=== PATIENT | male | born 1940 | race Caucasian/White ===

== ENCOUNTER 2017-08-18 11:26 | Inpatient (IN) ==
--- NOTE | 2017-08-18 13:17 | Emergency Department Note ---
Disposition Clinical Impression: CHF exacerbation Qualifiers: Heart failure type: unspecified Qualified Code(s): I50.9 - Heart failure, unspecified Congestive heart failure Qualifiers: Heart failure type: unspecified Heart failure chronicity: acute on chronic Qualified Code(s): I50.9 - Heart failure, unspecified Disposition: Admitted As Inpatient Condition: Good Time of Disposition: 15:27 SOB HPI - General Chief Complaint: ED Shortness of Breath/Dyspnea Stated Complaint: "sob,Leg/Feet swelling" came from surg Time Seen by Provider: 08/18/17 12:13 Source: patient Limitations: no limitations Nursing Notes Reviewed: Yes Vital Signs Reviewed: Yes - History of Present Illness 76-year-old male history of heart failure with pacemaker presents with shortness of breath in leg swelling. The symptoms have been worsening over the past 2 weeks. Patient went to his pain management physician today for shot in his knee but was sent here for further evaluation event to the complaint of dyspnea. Patient states he is normally able to walk roughly 100 feet without much difficulty by however the past few weeks he has refrained from any walking or activity due to the difficulty in breathing. It is worse with laying down. He denies any chest pain. He denies any recent illness, fever, cough or congestion. He takes a water pill twice a day which she has been doing. He states his diet is quite poor as he lives at home by himself and makes whatever he can. He admits to high salt intake. He otherwise denies any other complaints. Pt Subjective Complaint: shortness of breath - Related Data Home Medications Medication Instructions Recorded Confirmed Allopurinol [Zyloprim 300 MG] 300 mg PO DAILY 08/18/17 08/18/17 Atorvastatin [Lipitor] 40 mg PO HS 08/18/17 08/18/17 Dabigatran Etexilate Mesylate 150 mg PO BID 08/18/17 08/18/17 [Pradaxa] Finasteride [Proscar] 5 mg PO DAILY 08/18/17 08/18/17 Furosemide [Lasix] 40 mg PO BID 08/18/17 08/18/17 Gabapentin [Neurontin] 600 mg PO BID 08/18/17 08/18/17 HYDROcodone/Acet 5/325 mg [Morrill 2 tab PO TID 08/18/17 08/18/17 5-325 mg] Insulin ASPART [Novolog] 10 unit SQ TID 08/18/17 08/18/17 Insulin Glargine,Hum.rec.anlog 48 unit SQ QAM 08/18/17 08/18/17 [Lantus Solostar] Isosorbide MONOnitrate (24 HR) 60 mg PO DAILY 08/18/17 08/18/17 [Imdur] Lisinopril [Zestril] 40 mg PO DAILY 08/18/17 08/18/17 Methylphenidate HCl [Concerta] 18 mg PO DAILY 08/18/17 08/18/17 Morphine Sulfate [Arymo ER] 15 mg PO BID 08/18/17 08/18/17 Omeprazole [PriLOSEC] 40 mg PO BID 08/18/17 08/18/17 Potassium Chloride [Klor-Con 10] 10 meq PO DAILY 08/18/17 08/18/17 Promethazine [Phenergan] 25 mg PO DAILY 08/18/17 08/18/17 Spironolactone [Aldactone] 25 mg PO DAILY 08/18/17 08/18/17 metFORMIN [Glucophage] 500 mg PO BIDWM 08/18/17 08/18/17 Allergies Allergy/AdvReac Type Severity Reaction Status Date / Time red dye AdvReac Flushing Verified 08/18/17 15:39 CT/MRI Dye Allergy Anaphylaxis Uncoded 08/18/17 15:39 All systems ED: reviewed and negative except as stated. Review of Systems: As Per HPI Constitutional: Denies: fever, chills Cardiovascular: Denies: chest pain Respiratory: Reports: dyspnea. Denies: cough Gastrointestinal: Denies: abdominal pain, nausea, vomiting Genitourinary: Denies: urgency, dysuria Musculoskeletal: Denies: back pain, neck pain Integumentary: Denies: rash, abrasion Neurological: Denies: headache, weakness Psychiatric: Denies: anxiety, depression Endocrine: Reports: fatigue Past Medical History - Past Medical History Attestation: Yes The following information was validated with the patient. Source: patient Medical history: Reports: CHF, hyperlipidemia, hypertension Psychiatric history: Reports: no psych history - Social History Smoking Status: Never smoker Smokeless Tobacco Status: Yes Alcohol use: Reports: none Drug use: Reports: none Physical Exam - General Limitations: no limitations General appearance: alert, in no apparent distress, obese - Head Head exam: atraumatic, normocephalic, normal inspection - Eye Eye exam: Present: normal appearance, PERRL, EOMI - ENT ENT exam: normal exam, normal oropharynx, mucous membranes moist - Neck Neck exam: Present: normal inspection - Chest Chest inspection: Present: normal inspection, symmetric chest wall rise - Respiratory Respiratory exam: Present: normal lung sounds bilaterally. Absent: wheezes - Expanded Respiratory Exam Location: decreased breath sounds: Lower - Cardiovascular Cardiovascular exam: Present: regular rate, normal rhythm, normal heart sounds - Abdominal Exam Abdominal exam: Present: soft (obese), Non-Tender. Absent: tenderness, distention, guarding, rebound, rigidity - Extremities Exam Extremities exam: Present: normal inspection, full ROM, pedal edema (+3 pitting bilateral). Absent: tenderness - Neurological Exam Neurological exam: Present: alert, oriented X3 - Psychiatric Psychiatric exam: Present: normal affect, normal mood - Skin Skin exam: Present: warm, dry, intact, normal color Course Course Narrative: 76-year-old male presents with shortness of breath and leg swelling for the past 2 weeks. History of heart failure follows with Dr. Amanda Staples. Recent echocardiogram performed April 2017 with EF 50%. Patient is on diuretic. Over the past several days he has been more sure breath especially with exertion. He denies any chest pain. On examination he has pitting edema. Lungs are clear with diminished breath sounds. He admits to a poorly controlled diet of salt intake. He lives alone by himself and family is concerned. Labs and images performed. Chest x-ray shows cardiomegaly with mild congestion. BNP is slightly elevated 182. Labs or otherwise unremarkable. Patients afebrile without leukocytosis. Troponin less than 0.03. EKG is paced rhythm without STEMI findings. Patient will be admitted for further management and likely continue diuresis. Patient and family are in agreement with this plan. Impression is CHF exacerbation. - Consultations Consultation #1: Spoke with on-call hospitalist little Snell to admit for CHF exacerbation. No further orders at this time Vital Signs Temperature 97.8 F 08/18/17 11:50 Pulse Rate 89 08/18/17 11:50 Respiratory Rate 18 08/18/17 11:50 Blood Pressure 133/78 08/18/17 11:50 O2 Sat by Pulse Oximetry 93 08/18/17 11:50 Temperature 98.7 F 08/18/17 18:38 Pulse Rate 86 08/18/17 18:38 Respiratory Rate 17 08/18/17 18:38 Blood Pressure 117/66 08/18/17 18:38 O2 Sat by Pulse Oximetry 94 08/18/17 18:38 Oxygen Delivery Oxygen Delivery Room Air Shortness of Breath/Dyspnea - MDM Narrative Medical decision making narrative: Patient was discussed with my attending physician who agrees with ED management and final disposition. They independently evaluated the patient. Please refer to their attestation to this encounter for additional information. This note was generated by [employer] voice recognition software and as a result grammatical or spelling errors may occur using this program. - Medical Records Medical records reviewed: Yes I reviewed the patient's medical records. - Lab Data Lab results reviewed: Yes I reviewed the patient's lab results. Result diagrams: 08/18/17 13:16 08/18/17 13:16 Lab Results 08/18/17 08/18/17 08/18/17 Range/Units 13:16 13:16 13:16 WBC 6.6 (4.3-11.1) K/mcL RBC 4.19 (4.19-5.50) M/mcL Hgb 13.0 (12.9-16.9) g/dL Hct 39.2 (37.5-50.1) % MCV 93.6 (83.0-100.0) fL MCH 31.0 (28.0-33.3) pg MCHC 33.2 (31.6-35.5) g/dL RDW 15.6 H (11.5-14.5) % Plt Count 175 (140-400) K/mcL MPV 10.6 (9.4-12.4) fL Immature Gran % 0.8 (0-4) % Seg Neutrophils % 61.4 % Lymphocytes % 28.2 % Monocytes % 7.0 % Eosinophils % 2.1 % Basophils % 0.5 % Neutrophils # 4.0 (1.6-8.9) K/mcL Lymphocytes # 1.9 (0.6-4.6) K/mcL Monocytes # 0.5 (0.0-1.3) K/mcL Eosinophils # 0.1 (0.0-0.6) K/mcL Basophils # 0.0 (0.0-0.2) K/mcL Sodium 136 (136-145) mEq/L Potassium 4.2 (3.5-5.1) mEq/L Chloride 101 (98-107) mEq/L Carbon Dioxide 27 (23-29) mEq/L BUN 21 (8-23) mg/dL Creatinine 1.29 (0.70-1.30) mg/dL Est GFR ( Amer) > 60 (> 60) Est GFR (Non-Af Amer) 54 L (> 60) BUN/Creatinine Ratio 16 (6-26) Glucose 87 (70-105) mg/dL Calculated Osmolality 284 (280-300) Lactic Acid 1.5 (0.5-2.2) mmol/L Calcium 9.0 (8.6-10.3) mg/dL Troponin I < 0.03 (< 0.04) ng/mL B-Natriuretic Peptide (Less than 100) pg/mL 08/18/17 Range/Units 13:16 WBC (4.3-11.1) K/mcL RBC (4.19-5.50) M/mcL Hgb (12.9-16.9) g/dL Hct (37.5-50.1) % MCV (83.0-100.0) fL MCH (28.0-33.3) pg MCHC (31.6-35.5) g/dL RDW (11.5-14.5) % Plt Count (140-400) K/mcL MPV (9.4-12.4) fL Immature Gran % (0-4) % Seg Neutrophils % % Lymphocytes % % Monocytes % % Eosinophils % % Basophils % % Neutrophils # (1.6-8.9) K/mcL Lymphocytes # (0.6-4.6) K/mcL Monocytes # (0.0-1.3) K/mcL Eosinophils # (0.0-0.6) K/mcL Basophils # (0.0-0.2) K/mcL Sodium (136-145) mEq/L Potassium (3.5-5.1) mEq/L Chloride (98-107) mEq/L Carbon Dioxide (23-29) mEq/L BUN (8-23) mg/dL Creatinine (0.70-1.30) mg/dL Est GFR ( Amer) (> 60) Est GFR (Non-Af Amer) (> 60) BUN/Creatinine Ratio (6-26) Glucose (70-105) mg/dL Calculated Osmolality (280-300) Lactic Acid (0.5-2.2) mmol/L Calcium (8.6-10.3) mg/dL Troponin I (< 0.04) ng/mL B-Natriuretic Peptide 182 H (Less than 100) pg/mL - Radiology Data Radiology results reviewed: Yes I reviewed the patient's radiology results. Chest X-Ray 08/18/17 11:59 IMPRESSION: Borderline cardiomegaly and pulmonary vascular congestion. D/ / Miles Pearson MD / Miles Pearson MD Interpreting Provider: Miles Pearson MD - EKG Data EKG attestation: Yes I reviewed and interpreted this EKG. EKG results narrative: EKG performed 1146 electronic ventricular paced rhythm 73 bpm, QRS 139, no ST elevation or depression, no Sgarbossa criteria. Compared to prior EKG 2014 shows similar consistent findings. No acute ischemic changes.
[2017-08-18 13:30] LABS: Basophils % 0.5 %; Eosinophils # 0.1 K/mcL (0.0-0.6); Eosinophils % 2.1 %; Hematocrit 39.2 % (37.5-50.1); Immature Granulocytes % 0.8 % (0-4); Lymphocytes # 1.9 K/mcL (0.6-4.6); Lymphocytes % 28.2 %; Mean Corpuscular HGB Conc 33.2 g/dL (31.6-35.5); Mean Corpuscular Volume 93.6 fL (83.0-100.0); Mean Platelet Volume 10.6 fL (9.4-12.4); Monocytes # 0.5 K/mcL (0.0-1.3); Platelet Count 175 K/mcL (140-400); Red Blood Count 4.19 M/mcL (4.19-5.50); Red Cell Distribution Width 15.6 % (11.5-14.5); Segmented Neutrophils % 61.4 %
[2017-08-18 13:48] LABS: Troponin I < 0.03 ng/mL (< 0.04)
[2017-08-18 14:14] LABS: BUN/Creatinine Ratio 16 (6-26); Blood Urea Nitrogen 21 mg/dL (8-23); Carbon Dioxide 27 mEq/L (23-29); Chloride 101 mEq/L (98-107); Glucose 87 mg/dL (70-105); Osmolality,Calculated 284 (280-300); Potassium 4.2 mEq/L (3.5-5.1); Sodium 136 mEq/L (136-145); eGFR For African Americans > 60 (> 60); eGFR For Non-African Americans 54 (> 60)
[2017-08-18] MEDS ORDERED: Furosemide 40 MG/4 ML VIAL IVP ONE (15:10)
--- NOTE | 2017-08-18 15:23 | Emergency Department Note ---
Disposition Clinical Impression: Congestive heart failure Qualifiers: Heart failure type: unspecified Heart failure chronicity: acute Qualified Code( s): I50.9 - Heart failure, unspecified Disposition: Admitted As Inpatient Condition: Good Time of Disposition: 14:45 SOB HPI - General Chief Complaint: ED Shortness of Breath/Dyspnea Stated Complaint: "sob,Leg/Feet swelling" came from surg Time Seen by Provider: 08/18/17 12:13 Source: patient Mode of arrival: ambulatory Limitations: no limitations Nursing Notes Reviewed: Yes Vital Signs Reviewed: Yes - History of Present Illness 76-year-old male presents emergency Department with concerns of increasing shortness of breath and bilateral lower extremity edema. - Related Data Allergies Allergy/AdvReac Type Severity Reaction Status Date / Time red dye AdvReac Flushing Verified 01/23/15 12:56 CT/MRI Dye Allergy Anaphylaxis Uncoded 07/12/17 09:43 Constitutional: Denies: fever, chills Cardiovascular: Denies: chest pain Respiratory: Reports: dyspnea. Denies: cough Gastrointestinal: Denies: abdominal pain, nausea, vomiting Genitourinary: Denies: urgency, dysuria Musculoskeletal: Denies: back pain, neck pain Integumentary: Denies: rash, abrasion Neurological: Denies: headache, weakness Psychiatric: Denies: anxiety, depression Endocrine: Reports: fatigue Past Medical History - Past Medical History Medical history: Reports: CHF, hyperlipidemia, hypertension Psychiatric history: Reports: no psych history - Social History Smoking Status: Never smoker Smokeless Tobacco Status: Yes Alcohol use: Reports: none Drug use: Reports: none Physical Exam - General Limitations: no limitations General appearance: alert, in no apparent distress, obese Course Vital Signs Temperature 97.8 F 08/18/17 11:50 Pulse Rate 89 08/18/17 11:50 Respiratory Rate 18 08/18/17 11:50 Blood Pressure 133/78 08/18/17 11:50 O2 Sat by Pulse Oximetry 93 08/18/17 11:50 Temperature 97.8 F 08/18/17 11:50 Pulse Rate 89 08/18/17 11:50 Respiratory Rate 18 08/18/17 11:50 Blood Pressure 133/78 08/18/17 11:50 O2 Sat by Pulse Oximetry 93 08/18/17 11:50 Oxygen Delivery Oxygen Delivery Room Air Shortness of Breath/Dyspnea - Lab Data Result diagrams: 08/18/17 13:16 08/18/17 13:16 Lab Results 08/18/17 08/18/17 08/18/17 Range/Units 13:16 13:16 13:16 WBC 6.6 (4.3-11.1) K/mcL RBC 4.19 (4.19-5.50) M/mcL Hgb 13.0 (12.9-16.9) g/dL Hct 39.2 (37.5-50.1) % MCV 93.6 (83.0-100.0) fL MCH 31.0 (28.0-33.3) pg MCHC 33.2 (31.6-35.5) g/dL RDW 15.6 H (11.5-14.5) % Plt Count 175 (140-400) K/mcL MPV 10.6 (9.4-12.4) fL Immature Gran % 0.8 (0-4) % Seg Neutrophils % 61.4 % Lymphocytes % 28.2 % Monocytes % 7.0 % Eosinophils % 2.1 % Basophils % 0.5 % Neutrophils # 4.0 (1.6-8.9) K/mcL Lymphocytes # 1.9 (0.6-4.6) K/mcL Monocytes # 0.5 (0.0-1.3) K/mcL Eosinophils # 0.1 (0.0-0.6) K/mcL Basophils # 0.0 (0.0-0.2) K/mcL Sodium 136 (136-145) mEq/L Potassium 4.2 (3.5-5.1) mEq/L Chloride 101 (98-107) mEq/L Carbon Dioxide 27 (23-29) mEq/L BUN 21 (8-23) mg/dL Creatinine 1.29 (0.70-1.30) mg/dL Est GFR ( Amer) > 60 (> 60) Est GFR (Non-Af Amer) 54 L (> 60) BUN/Creatinine Ratio 16 (6-26) Glucose 87 (70-105) mg/dL Calculated Osmolality 284 (280-300) Lactic Acid 1.5 (0.5-2.2) mmol/L Calcium 9.0 (8.6-10.3) mg/dL Troponin I < 0.03 (< 0.04) ng/mL B-Natriuretic Peptide (Less than 100) pg/mL 08/18/17 Range/Units 13:16 WBC (4.3-11.1) K/mcL RBC (4.19-5.50) M/mcL Hgb (12.9-16.9) g/dL Hct (37.5-50.1) % MCV (83.0-100.0) fL MCH (28.0-33.3) pg MCHC (31.6-35.5) g/dL RDW (11.5-14.5) % Plt Count (140-400) K/mcL MPV (9.4-12.4) fL Immature Gran % (0-4) % Seg Neutrophils % % Lymphocytes % % Monocytes % % Eosinophils % % Basophils % % Neutrophils # (1.6-8.9) K/mcL Lymphocytes # (0.6-4.6) K/mcL Monocytes # (0.0-1.3) K/mcL Eosinophils # (0.0-0.6) K/mcL Basophils # (0.0-0.2) K/mcL Sodium (136-145) mEq/L Potassium (3.5-5.1) mEq/L Chloride (98-107) mEq/L Carbon Dioxide (23-29) mEq/L BUN (8-23) mg/dL Creatinine (0.70-1.30) mg/dL Est GFR ( Amer) (> 60) Est GFR (Non-Af Amer) (> 60) BUN/Creatinine Ratio (6-26) Glucose (70-105) mg/dL Calculated Osmolality (280-300) Lactic Acid (0.5-2.2) mmol/L Calcium (8.6-10.3) mg/dL Troponin I (< 0.04) ng/mL B-Natriuretic Peptide 182 H (Less than 100) pg/mL Attestation Statement - Attestation Attestation: I, Trenton Boyce, examined this patient and my medical decision-making was reviewed with the LEASE OUT WORKER/PA/Advanced Practice Nurse/Resident Physician. I agree with the documented findings, disposition and treatment plan as described except to the extent set forth below. 76-year-old male presents emergency Department with concerns of increasing shortness of breath and bilateral lower extremity swelling over the past 2-3 weeks. Patient states he has been eating increased amounts of sausage and ham at home. He takes Lasix every morning and denies missing any of his medications. Denies any recent chest pain or palpitations or syncopal events. Patient does state that he is increasingly more short of breath over the past 2 weeks with increased orthopnea and dyspnea on exertion. Patient states he is unable to walk around the house without becoming short of breath. He does state that he becomes lightheaded with exertion. Family is concerned because he lives at home alone. Chest x-ray shows mild cardiomegaly and mild to moderate pulmonary edema. BNP is mildly elevated at 189. Creatinine within normal limits. Initial troponin negative. EKG shows the paced rhythm with a rate of 73 without evidence of STEMI. Patient comfortable with the plan for admission to hospital for further care and evaluation with continued diuresis.
[2017-08-18] MEDS ORDERED: Acetaminophen 325 MG TABLET PO PRN (18:24)
[2017-08-18] MEDS ORDERED: Naloxone 0.4 MG/ML INJ IVP PRN (18:24)
[2017-08-18] MEDS ORDERED: *HR* Dextrose 50 % in Water (Syg) 50 ML SYRINGE IVP PRN (18:36)
[2017-08-18] MEDS ORDERED: Dextrose Gel 15 GM/37.5 ML TUBE PO PRN ×2 (18:36)
[2017-08-18] MEDS ORDERED: D5% in Water 1,000 ML IVC PRN (18:36)
[2017-08-18] MEDS: Insulin LISPRO 300 UNITS/3 ML VIAL SQ SCH ×2 (20:32→20:41)
[2017-08-18] MEDS: Gabapentin 300 MG CAPSULE PO SCH (20:40)
[2017-08-18] MEDS: *HR* Morphine Sulfate SR (12 HR) 15 MG TABLET.ER PO SCH (20:40)
[2017-08-18] MEDS: *HR* Dabigatran 150 MG CAPSULE PO SCH (20:40)
--- NOTE | 2017-08-18 21:11 | Internal Med History&Physical ---
Date of Encounter: 08/18/17 Time of Encounter: 18:07 Internal Medicine - H&P: HPI Chief complaint: "Told to come in by pain management doctor because both legs swollen" Admitted From: Emergency Dept Plans for Post Hospital Care: Home History of present illness: Mr. Macedo is a 76 year old male who presented to ED from pain management clinic due to increased BLE edema and worsening dyspnea. Patient was at routine pain management appointment when he was told to come to ED. He has had worsening BLE edema and intermittent dyspnea over the last 3 weeks. He has history of CHF that was previously well-controlled. No exacerbations like this per patient since diagnosis. Dyspnea was worse with exertion. He is having hard time sleeping at night due to dyspnea. He denies chest pain, palpitations , nausea, vomiting, fever, or chills. During my interview, he states that breathing seems to be back to baseline now. He still has significant BLE edema. He is putting out good urine since getting lasix 40 mg IV once in ED. Nursing staff reported skin wounds and erythma/warmth of LLE. He states that he thinks he may have been scratched by one of his four dogs. He has decreased sensation in BLE due to parasthesias from DM. His only other complaint is a GIL he has had all day. Past Med Surg Social Fam HX - Past Medical History Attestation: Yes The following information was validated with the patient. Source: patient Medical history: CHF, diabetes, GERD, hyperlipidemia, hypertension, other (Gout) Psychiatric history: no psych history - Past Surgical History Surgical History: cataract, cholecystectomy, pacemaker - Social History Smoking Status: Never smoker Smokeless Tobacco Status: Yes Alcohol use: none Drug use: none - Family History Mother Living Status: Age at : 72 Cause of : "pancreas" Father Living Status: Age at : 83 Cause of : [place] Internal Medicine - H&P: Meds Allopurinol [Zyloprim 300 MG] 300 mg PO DAILY 08/18/17 [History] Atorvastatin [Lipitor] 40 mg PO HS 08/18/17 [History] Dabigatran Etexilate Mesylate [Pradaxa] 150 mg PO BID 08/18/17 [History] Finasteride [Proscar] 5 mg PO DAILY 08/18/17 [History] Furosemide [Lasix] 40 mg PO BID 08/18/17 [History] Gabapentin [Neurontin] 600 mg PO BID 08/18/17 [History] HYDROcodone/Acet 5/325 mg [[place] 5-325 mg] 2 tab PO TID 08/18/17 [History] Insulin ASPART [Novolog] 10 unit SQ TID 08/18/17 [History] Insulin Glargine,Hum.rec.anlog [Lantus Solostar] 48 unit SQ QAM 08/18/17 [ History] Isosorbide MONOnitrate (24 HR) [Imdur] 60 mg PO DAILY 08/18/17 [History] Lisinopril [Zestril] 40 mg PO DAILY 08/18/17 [History] Methylphenidate HCl [Concerta] 18 mg PO DAILY 08/18/17 [History] Morphine Sulfate [Arymo ER] 15 mg PO BID 08/18/17 [History] Omeprazole [PriLOSEC] 40 mg PO BID 08/18/17 [History] Potassium Chloride [Klor-Con 10] 10 meq PO DAILY 08/18/17 [History] Promethazine [Phenergan] 25 mg PO DAILY 08/18/17 [History] Spironolactone [Aldactone] 25 mg PO DAILY 08/18/17 [History] metFORMIN [Glucophage] 500 mg PO BIDWM 08/18/17 [History] 3 Allergy/AdvReac Type Severity Reaction Status Date / Time red dye AdvReac Flushing Verified 08/18/17 15:39 CT/MRI Dye Allergy Anaphylaxis Uncoded 08/18/17 15:39 All Systems PM: A 10-system review of systems was performed and is negative for pertinent findings except as documented above in the HPI. - Constitutional Constitutional: no anorexia, no chills, no fever(s), no lethargy, no malaise, no weakness, no weight gain, no weight loss - EENT Eyes: no blurry vision, no diplopia, no loss of vision, no pain, no photophobia Ears: no decreased hearing, no ear pain Nose, mouth and throat: no dry mouth, no dysphagia, no mouth pain, no nasal congestion, no neck pain, no sinus pain, no sore throat - Cardiovascular Cardiovascular ROS IM: dyspnea, dyspnea on exertion, edema, no chest pain, no diaphoresis, no lightheadedness, no palpitations, no syncope - Respiratory Respiratory: dyspnea, dyspnea on exertion, no cough, no hemoptysis, no wheezing , no chest congestion - Gastrointestinal Gastrointestinal: no abdominal pain, no change in bowel habits, no constipation , no diarrhea, no dysphagia, no heartburn, no hematemesis, no hematochezia, no melena, no nausea, no vomiting - Genitourinary Genitourinary ROS male: no dysuria, no hematuria, no urinary frequency - Musculoskeletal Musculoskeletal ROS IM: no arthralgias, no back pain, no joint swelling, no limited range of motion, no myalgias, no neck pain - Integumentary Integumentary IM: erythema, new lesions, no rash, no sores, no jaundice - Neurological Neurological ROS: headache(s), paresthesias, no confusion, no dizziness, no focal weakness, no vertigo, no weakness - Psychiatric Psychiatric: no anxiety, no depression - Endocrine Endocrine IM: no cold intolerance, no fatigue, no heat intolerance, no polydipsia, no polyphagia, no polyuria - Constitutional Vitals: Temp Pulse Resp BP Pulse Ox 98.7 F 86 17 117/66 94 08/18/17 18:38 08/18/17 18:38 08/18/17 18:38 08/18/17 18:38 08/18/17 18:38 General appearance: Present: cooperative, A&O X 3, pleasant, no acute distress, obese, answers questions appropriately - Head Head exam: Present: atraumatic, normocephalic - Eye Eye exam: Present: EOMI, PERRL. Absent: nystagmus, scleral icterus - ENT ENT exam: Present: mucous membranes moist, normal external ear exam, normal oropharynx - Neck Neck exam general surgery: Present: supple, trachea midline. Absent: lymphadenopathy, tenderness, thyromegaly - Respiratory Respiratory exam: Present: CTAB. Absent: accessory muscle use, rales, rhonchi, wheezes Additional comments: Normal WOB - Cardiovascular Cardiovascular exam: Present: RRR, +S1, +S2. Absent: diastolic murmur, gallop, rubs, systolic murmur Additional comments: 3+ pitting BLE edema - GI/Abdominal GI/Abdominal exam: Present: normal bowel sounds, soft. Absent: distended, hepatomegaly, mass, splenomegaly, tenderness - Neurological Exam Neurological exam: Present: alert, CN II-XII intact, oriented X3, no focal deficits, strengths equal and symetr throughout. Absent: facial droop, speech deficit - Psychiatric Psychiatric exam: Present: normal affect, normal mood. Absent: agitated, anxious, depressed - Skin Skin exam: Present: dry, warm. Absent: cyanosis, rash Additional comments: Medial left lower leg with increased erythema and two small < 1 cm diameter scabbed lesions. Increased warmth of LLE. No induration. No pus or drainage. Internal Med - H&P Results - Labs CBC & Chem 7: 08/18/17 13:16 08/18/17 13:16 - Assessment and plan (1) CHF exacerbation Current Visit: Yes Status: Acute Assessment and plan: Mild exacerbation clinically. Respiratory status at baseline now; O2 sat 90- 100 on RA. Still with significant BLE edema. Admit for observation with telemetry. Will continue to diurese with IV lasix 40 mg BID (takes lasix 80 mg QD at home). Obtain repeat ECHO (he states last ECHO was > 1 year ago). Continue home lisinopril and aldactone. Monitor daily weights and strict I&O. Cardiac diet. Qualifiers: Heart failure type: unspecified Qualified Code(s): I50.9 - Heart failure, unspecified (2) Cellulitis of left lower extremity without foot Current Visit: Yes Status: Acute Assessment and plan: Two smalled scabbed skin wounds on left medial lower leg with surrounding warmth and erythema, no induration. Concern for cellulitis. Give one dose IV vancomycin now, then start PO clindamycin 600 mg Q8H tomorrow AM. Start tylenol PRN fever. (3) Headache Current Visit: Yes Status: Acute Assessment and plan: Start tylenol and norco PRN. Consider CT head if no improvement with pain medication. Qualifiers: Headache type: unspecified Headache chronicity pattern: acute headache Intractability: not intractable Qualified Code(s): R51 - Headache (4) Type II diabetes mellitus Current Visit: Yes Status: Chronic Assessment and plan: Start accuchecks and low dose SSI QID AC/HS. Continue home levemir. Qualifiers: Diabetes mellitus mcc insulin use: with longwall foreman use Diabetes mellitus complication status: with neurologic complications Diabetes mellitus complication detail: with polyneuropathy Qualified Code(s): E11.42 - Type 2 diabetes mellitus with diabetic polyneuropathy; Z79.4 - buttermaker (current) use of insulin; Z79.4 - buttermaker (current) use of insulin; Z79.4 - prison ( current) use of insulin; Z79.4 - buttermaker (current) use of insulin (5) HLD (hyperlipidemia) Current Visit: Yes Status: Chronic Assessment and plan: Continue home medications. Qualifiers: Hyperlipidemia type: mixed hyperlipidemia Qualified Code(s): E78.2 - Mixed hyperlipidemia (6) HTN (hypertension) Current Visit: Yes Status: Chronic Assessment and plan: Continue home medications. Qualifiers: Hypertension type: essential hypertension Qualified Code(s): I10 - Essential (primary) hypertension (7) GERD (gastroesophageal reflux disease) Current Visit: Yes Status: Acute Assessment and plan: Continue home medications. Qualifiers: Esophagitis presence: without esophagitis Qualified Code(s): K21.9 - Gastro -esophageal reflux disease without esophagitis (8) Gout Current Visit: Yes Status: Acute Assessment and plan: Continue home medications. Qualifiers: Gout site: unspecified site Gout etiology: unspecified cause Chronicity: chronic Presence of tophus: without tophus Qualified Code(s): M1A.9XX0 - Chronic gout, unspecified, without tophus (tophi) (9) DVT prophylaxis Current Visit: Yes Status: Acute Assessment and plan: Continue home pradaxa. - Time Spent With Patient Total time spent is greater than 50% in coordination of care (as documented) at patient's floor/unit and/or counseling patient: 25 - 35 minutes
[2017-08-19 04:58] LABS: Basophils % 0.4 %; Eosinophils # 0.2 K/mcL (0.0-0.6); Hematocrit 37.7 % (37.5-50.1); Hemoglobin 12.4 g/dL (12.9-16.9); Immature Granulocytes % 0.5 % (0-4); Lymphocytes % 26.9 %; Mean Corpuscular HGB Conc 32.9 g/dL (31.6-35.5); Mean Corpuscular Hemoglobin 30.5 pg (28.0-33.3); Mean Corpuscular Volume 92.6 fL (83.0-100.0); Mean Platelet Volume 11.1 fL (9.4-12.4); Monocytes # 0.7 K/mcL (0.0-1.3); Monocytes % 8.7 %; Neutrophils # 4.7 K/mcL (1.6-8.9); Platelet Count 174 K/mcL (140-400); Red Blood Count 4.07 M/mcL (4.19-5.50); Red Cell Distribution Width 15.5 % (11.5-14.5); Segmented Neutrophils % 61.5 %
[2017-08-19 05:17] LABS: BUN/Creatinine Ratio 15 (6-26); Blood Urea Nitrogen 20 mg/dL (8-23); Calcium 9.2 mg/dL (8.6-10.3); Carbon Dioxide 28 mEq/L (23-29); Chloride 101 mEq/L (98-107); Glucose 121 mg/dL (70-105); Osmolality,Calculated 288 (280-300); Potassium 3.8 mEq/L (3.5-5.1); Sodium 137 mEq/L (136-145); eGFR For African Americans > 60 (> 60); eGFR For Non-African Americans 51 (> 60)
[2017-08-19] MEDS: Insulin LISPRO 300 UNITS/3 ML VIAL SQ SCH ×4 (07:30→21:21)
[2017-08-19] MEDS: Isosorbide MONOnitrate (24 HR) 60 MG TAB.ER.24H PO SCH (08:23)
[2017-08-19] MEDS: Lisinopril 20 MG TABLET PO SCH (08:24)
[2017-08-19] MEDS: Finasteride 5 MG TABLET PO SCH (08:24)
[2017-08-19] MEDS: *HR* Dabigatran 150 MG CAPSULE PO SCH ×2 (08:24→21:20)
[2017-08-19] MEDS: Furosemide 40 MG/4 ML VIAL IVP SCH ×2 (08:24→16:36)
[2017-08-19] MEDS: Gabapentin 300 MG CAPSULE PO SCH ×2 (08:24→21:20)
[2017-08-19] MEDS: *HR* Morphine Sulfate SR (12 HR) 15 MG TABLET.ER PO SCH ×2 (08:24→21:20)
[2017-08-19] MEDS: Insulin DETEMIR 100 UNIT/ML X5UNITS SQ SCH (08:25)
[2017-08-19] MEDS: Spironolactone 25 MG TABLET PO SCH (08:25)
--- NOTE | 2017-08-19 09:55 | Cardiology Consult Note ---
Date of Encounter: 08/19/17 Time of Encounter: 09:40 Assessment and Plan (1) CHF exacerbation Current Visit: Yes Status: Acute Known NICM s/p BiVICD. Signs and symptoms consistent with CHF exacerbation Limited TTE: moderately decreased LV function, but not well visualized Do not feel repeat imaging is necessary at this time Plan: - continue diuresis, I/O's, daily weights, salt and fluid restriction - continue ACEI, statin, aldactone, and statin - out-pt chart shows Toprol XL 200mg daily as well - will add Toprol Qualifiers: Heart failure type: systolic Qualified Code(s): I50.23 - Acute on chronic systolic (congestive) heart failure (2) Paroxysmal atrial fibrillation Current Visit: Yes Status: Acute V-paced rhythm, HR 75. Currently on pradaxa Out-patient chart shows that he is also on Amiodarone and has been for several years Will add Amiodarone 200 mg daily (3) HTN (hypertension) Current Visit: Yes Status: Chronic Continue home meds Qualifiers: Hypertension type: essential hypertension Qualified Code(s): I10 - Essential (primary) hypertension (4) HLD (hyperlipidemia) Current Visit: Yes Status: Chronic Continue statin Qualifiers: Hyperlipidemia type: mixed hyperlipidemia Qualified Code(s): E78.2 - Mixed hyperlipidemia (5) Type II diabetes mellitus Current Visit: Yes Status: Chronic Management per primary team Qualifiers: Diabetes mellitus half-way insulin use: with half-way use Diabetes mellitus complication status: with neurologic complications Diabetes mellitus complication detail: with polyneuropathy Qualified Code(s): E11.42 - Type 2 diabetes mellitus with diabetic polyneuropathy; Z79.4 - termite treater (current) use of insulin; Z79.4 - termite treater (current) use of insulin; Z79.4 - termite treater ( current) use of insulin; Z79.4 - termite treater (current) use of insulin (6) Cellulitis of left lower extremity without foot Current Visit: Yes Status: Acute Management per primary team Discussion w patient/family: The assessment and plan as outlined above was discussed with the patient and/or family members who expressed understanding and agreement. All questions were answered. Thank you for involving us in the care of your patient. Please call with any questions. History of Present Illness Consult date: 08/19/17 Requesting physician: Carly Helms Consult reason: CHF Chief complaint: LE edema and dyspnea History of present illness: Mr. Macedo is a 76 year old male with PMH of systolic CHF, BiVICD, paroxsymal A. fib, HTN, HLD, DM, and GERD, presented with 2-3 weeks history of bilateral LE edema and worsening dyspnea. He reports dyspnea on exertion, orthopnea, and PND. Denies this happening in the past. Reports some associated lower abdominal pain and diarrhea, leading to nausea. Denies chest pain/pressure/tightness, palpitations, jaw or arm pain, light-headedness, diaphoresis, or vomiting. Denies exertional chest pain. Previous Cardiac Imaging: - TTE 04/2017: LVEF 50%, low to normal LV systolic function, normal RV, severely dilated atria bilaterally, mild AR, device leads in RA and RV. Improved compared to 2014 with EF 35%. - LHC 2011: severe single vessel disease, prox-mid RCA with good collateral flow Past Med Surg Social Fam HX - Past Medical History Medical history: CHF, hyperlipidemia, hypertension Psychiatric history: no psych history - Past Surgical History Surgical History: cataract, cholecystectomy, pacemaker - Social History Smoking Status: Never smoker Smokeless Tobacco Status: Yes Alcohol use: none Drug use: none - Family History Mother Living Status: Age at : 72 Cause of : "pancreas" Father Living Status: Age at : 83 Cause of : [place] Medications and Allergies Allopurinol [Zyloprim 300 MG] 300 mg PO DAILY 08/18/17 [History] Atorvastatin [Lipitor] 40 mg PO HS 08/18/17 [History] Dabigatran Etexilate Mesylate [Pradaxa] 150 mg PO BID 08/18/17 [History] Finasteride [Proscar] 5 mg PO DAILY 08/18/17 [History] Furosemide [Lasix] 40 mg PO BID 08/18/17 [History] Gabapentin [Neurontin] 600 mg PO BID 08/18/17 [History] HYDROcodone/Acet 5/325 mg [[place] 5-325 mg] 2 tab PO TID 08/18/17 [History] Insulin ASPART [Novolog] 10 unit SQ TID 08/18/17 [History] Insulin Glargine,Hum.rec.anlog [Lantus Solostar] 48 unit SQ QAM 08/18/17 [ History] Isosorbide MONOnitrate (24 HR) [Imdur] 60 mg PO DAILY 08/18/17 [History] Lisinopril [Zestril] 40 mg PO DAILY 08/18/17 [History] Methylphenidate HCl [Concerta] 18 mg PO DAILY 08/18/17 [History] Morphine Sulfate [Arymo ER] 15 mg PO BID 08/18/17 [History] Omeprazole [PriLOSEC] 40 mg PO BID 08/18/17 [History] Potassium Chloride [Klor-Con 10] 10 meq PO DAILY 08/18/17 [History] Promethazine [Phenergan] 25 mg PO DAILY 08/18/17 [History] Spironolactone [Aldactone] 25 mg PO DAILY 08/18/17 [History] metFORMIN [Glucophage] 500 mg PO BIDWM 08/18/17 [History] 3 Allergy/AdvReac Type Severity Reaction Status Date / Time red dye AdvReac Flushing Verified 08/18/17 15:39 CT/MRI Dye Allergy Anaphylaxis Uncoded 08/18/17 15:39 All Systems Review: The remainder of the systems were reviewed and are negative Physical Examination Vital Signs, Last 4 Hours Temp Pulse Resp BP Pulse Ox 08/19/17 07:34 97.6 F 75 20 167/86 95 General: Conversant, No Apparent Distress HEENT: Atraumatic, Normocephaly, Mucus Membranes Moist Neck: No JVD, Normal carotid pulses Cardiac: Reg Rate and Rhythm, Normal S1 and S2, No Murmur Lungs: No Wheeze, Rales, Rhonchi, Other (Diminished bilaterally) Neuro: Alert and responsive, No focal deficits noted Abdomen: Soft, Non-Tender Skin: Other (Erythema on left LE) Musculoskeletal: No Chest Wall Tenderness Extremities: No Clubbing, No Cyanosis, Normal Pulses, Other (Pitting edema bilaterally) Results 08/19/17 03:11 08/19/17 03:11 Lab Results 08/19/17 08/19/17 08/19/17 03:11 03:11 03:11 WBC 7.6 Hgb 12.4 L Hct 37.7 Plt Count 174 Sodium 137 Potassium 3.8 Chloride 101 Carbon Dioxide 28 BUN 20 Creatinine 1.35 H Glucose 121 H Calcium 9.2 B-Natriuretic Peptide 217 H Consult Discharge Plan - Plan [facility]errals: [facility] [Primary Care Provider[facility] -
--- NOTE | 2017-08-19 11:09 | Infectious Disease Consult ---
Date of Encounter: 08/19/17 Time of Encounter: 11:01 Assessment and Plan (1) Cellulitis of left lower extremity without foot Status: Acute Assessment and plan: Location: LLE. Causative organism unclear. Likely secondary to dog scratches and BLE swelling. Non-purulent. Clinically improved per patient report. Discontinue Clindamycin. Start Augmentin 875mg PO BID to complete a 10-14 day course. Monitor renal function and dose-adjust antibiotics. Recommend aggressive management of CHF to prevent LE swelling and further infections. No further recommendations from the ID team. Will sign off. Please re-consult if needed. (2) CHF exacerbation Status: Acute Assessment and plan: Patient has known diagnosis of systolic heart failure status post BivICD and follows with Janice LINDO. TTE showed mild to moderate decline in the LV function, but was of poor quality. Cardiology consulted and following. Qualifiers: Heart failure type: systolic Qualified Code(s): I50.23 - Acute on chronic systolic (congestive) heart failure (3) Acute kidney injury Status: Acute Assessment and plan: Serum creatinine mildly elevated at 1.35 this morning. Could be secondary to IV Lasix. Creatinine clearance ~40. Continue to trend. Strict I's and O's. No dose-adjustment of antibiotics required. (4) Type II diabetes mellitus Status: Chronic Assessment and plan: Check HgbA1C. Recommend aggressive glucose monitoring and control to promote wound healing and prevent infection. Management per the primary team. Qualifiers: Diabetes mellitus long term care pharmacist insulin use: with longterm use Diabetes mellitus complication status: with neurologic complications Diabetes mellitus complication detail: with polyneuropathy Qualified Code(s): E11.42 - Type 2 diabetes mellitus with diabetic polyneuropathy; Z79.4 - intermission coordinator (current) use of insulin; Z79.4 - detention (current) use of insulin; Z79.4 - intermission coordinator ( current) use of insulin; Z79.4 - detention (current) use of insulin (5) Headache Status: Acute Assessment and plan: Etiology unclear. Further workup and management per the primary team. Qualifiers: Headache type: unspecified Headache chronicity pattern: acute headache Intractability: not intractable Qualified Code(s): R51 - Headache (6) HLD (hyperlipidemia) Status: Chronic Qualifiers: Hyperlipidemia type: mixed hyperlipidemia Qualified Code(s): E78.2 - Mixed hyperlipidemia (7) HTN (hypertension) Status: Chronic Qualifiers: Hypertension type: essential hypertension Qualified Code(s): I10 - Essential (primary) hypertension (8) GERD (gastroesophageal reflux disease) Status: Acute Qualifiers: Esophagitis presence: without esophagitis Qualified Code(s): K21.9 - Gastro -esophageal reflux disease without esophagitis (9) Diarrhea Status: Acute Assessment and plan: Chronic, but appears worsened since starting antibiotics. Start probiotics. Qualifiers: Diarrhea type: unspecified type Qualified Code(s): R19.7 - Diarrhea, unspecified Infectious Disease HPI - Data of Consult Patient: new to practice Consult date: 08/19/17 Requesting Physician: Marquise Montoya [facility] - Consult Narrative Reason for consult: LLE cellulitis History of present illness: Mr. Macedo is a 76 year old male with a past medical history of systolic CHF with biventricular AICD, hyperlipidemia, hypertension, diabetes, GERD, and chronic bilateral knee pain status post left genicular nerve block in May 2017. The patient was admitted to the hospital August 18 for CHF exacerbation. We are consulted August 19 for recommendations for left lower extremity cellulitis. Briefly, the patient's a 76-year-old male with past medical history as stated above. Patient presented to the ER from the pain management clinic with complaints of shortness of breath and bilateral lower extremity leg swelling that started about 2 weeks ago and has aggressively gotten worse. Upon arrival to the ER, the patient was afebrile and hemodynamically stable. Laboratory studies revealed a normal white blood cell count. He did have a mild acute kidney injury with a serum creatinine of 1.29. Lactic acid was normal. Troponin was negative. BNP was mildly elevated at 182. Chest x-ray showed borderline cardiomegaly and pulmonary vascular congestion. He was admitted to the hospital for further evaluation and treatment. Since admission, the patient has undergone a transthoracic echocardiogram that showed mild to moderate decrease in LV function, but study was of poor quality. Once admitted, he was evaluated by the hospitalist team and noted to have increased redness and pain to the left lower extremity as well as some scabbed lesions that he states was secondary to his dog scratching him. There is concern for cellulitis and he was given 1 time dose of IV vancomycin and started on by mouth clindamycin. Cardiology has been consulted and their consult is pending. Today, the patient's white blood cell count remains normal. He remains afebrile and hemodynamically stable. We have been asked to evaluate and make further recommendations. Since then, the patient endorses a history as stated above. He states that over the past 2 weeks he has had progressively worsening dyspnea on exertion and I lateral lower extremity swelling. He denies any fevers or chills or rigors. He does report intermittent headaches over the past 3 or 4 days, but is unable to localize the pain or describe it. He denies any weakness or dizziness. He denies any neck pain or stiffness. He denies any congestion, earache, or sore throat. He denies any chest pain or cough. He does report some intermittent nausea over the past week or so. He states he has also had diarrhea with associated lower abdominal discomfort and states she has had 3 diarrheal stools this morning. He denies any urinary complaints. He denies any blood or mucus in his stool. He denies any recent antibiotic use. He states that his bilateral lower extremities were painful and swollen upon admission, left worse than right. He also reports that his left lower extremity was pretty red and warm to touch. He states he has some scabbed lesions to the lower aspect of his leg from his dog scratching him. He denies any dog bites. He denies any exposure to any other animals. He states that up until about 3 weeks ago he [place]. He denies any other water exposure. He states that the redness in the left lower extremity and swelling to the bilateral lower extremities is markedly improved this morning, about 50% better. He denies any oral thrush or other skin lesions. The patient lives at home alone. He does have family that checks in on him. He is retired from the [employer]. He reports that he chews tobacco, about a pack a day. He denies any alcohol or illicit drug use. He denies any recent travel outside the [facility]. CC: Marquise Montoya Past Med Surg Social Fam HX - Past Medical History Attestation: Yes The following information was validated with the patient. Source: patient, old records reviewed, nursing notes reviewed Medical history: CHF, GERD, hyperlipidemia, hypertension Psychiatric history: no psych history - Past Surgical History Surgical History: cataract, cholecystectomy, AICD - Social History Smoking Status: Never smoker Smokeless Tobacco Status: Yes Alcohol use: none Drug use: none Occupational status: retired Current living situation: Home - Independent Activity Level: Independent ambulation Recent Out of Country Travel Within the Last 8 Weeks: No Exposure or Possible Exposure to Illness During Travel: No - Family History Mother Living Status: Age at : 72 Cause of : "pancreas" Father Living Status: Age at : 83 Cause of : NC Infectious Disease-CN:Meds Allopurinol [Zyloprim 300 MG] 300 mg PO DAILY 08/18/17 [History] Atorvastatin [Lipitor] 40 mg PO HS 08/18/17 [History] Dabigatran Etexilate Mesylate [Pradaxa] 150 mg PO BID 08/18/17 [History] Finasteride [Proscar] 5 mg PO DAILY 08/18/17 [History] Furosemide [Lasix] 40 mg PO BID 08/18/17 [History] Gabapentin [Neurontin] 600 mg PO BID 08/18/17 [History] HYDROcodone/Acet 5/325 mg [Lutz 5-325 mg] 2 tab PO TID 08/18/17 [History] Insulin ASPART [Novolog] 10 unit SQ TID 08/18/17 [History] Insulin Glargine,Hum.rec.anlog [Lantus Solostar] 48 unit SQ QAM 08/18/17 [ History] Isosorbide MONOnitrate (24 HR) [Imdur] 60 mg PO DAILY 08/18/17 [History] Lisinopril [Zestril] 40 mg PO DAILY 08/18/17 [History] Methylphenidate HCl [Concerta] 18 mg PO DAILY 08/18/17 [History] Morphine Sulfate [Arymo ER] 15 mg PO BID 08/18/17 [History] Omeprazole [PriLOSEC] 40 mg PO BID 08/18/17 [History] Potassium Chloride [Klor-Con 10] 10 meq PO DAILY 08/18/17 [History] Promethazine [Phenergan] 25 mg PO DAILY 08/18/17 [History] Spironolactone [Aldactone] 25 mg PO DAILY 08/18/17 [History] metFORMIN [Glucophage] 500 mg PO BIDWM 08/18/17 [History] 3 Allergy/AdvReac Type Severity Reaction Status Date / Time red dye AdvReac Flushing Verified 08/18/17 15:39 CT/MRI Dye Allergy Anaphylaxis Uncoded 08/18/17 15:39 All systems: reviewed and no additional remarkable complaints except as stated Exam - Constitutional Vitals: Temp Pulse Resp BP Pulse Ox 97.6 F 75 20 167/86 95 08/19/17 07:34 08/19/17 07:34 08/19/17 07:34 08/19/17 07:34 08/19/17 07:34 General appearance: cooperative, no acute distress, obese - Head Head exam: Present: atraumatic, normal inspection, normocephalic - Eye Eye exam: Present: EOMI, normal appearance, PERRL Pupils: Present: normal accommodation - ENT ENT exam: Present: mucous membranes moist - Neck Neck exam: Present: normal inspection - Respiratory Respiratory exam: Present: CTAB. Absent: rales, respiratory distress, rhonchi, wheezes - Cardiovascular Cardiovascular exam: Present: RRR, +S1, +S2 - GI/Abdominal GI/Abdominal exam: Present: distended (obese), normal bowel sounds, soft. Absent: tenderness - Extremities Exam Extremities exam: Present: pedal edema (1+ BLE). Absent: joint swelling, tenderness Additional comments: Mild erythema noted to the LLE. Scabbed lesions noted without drainage. - Neurological Exam Neurological exam: Present: alert, oriented X3, no focal deficits - Psychiatric Psychiatric exam: Present: normal affect, normal mood - Skin Skin exam: Present: dry, intact, normal color, warm Infectious Disease CN: Results - Labs CBC & Chem 7: 08/19/17 03:11 08/19/17 03:11 Consult Discharge Plan - Plan [facility]errals: [facility] [Primary Care Provider] - - Attending Attestation I examined this patient and my medical decision-making was reviewed with the Resident Physician. I agree with the documented findings, disposition and treatment plan as described except to the extent set forth below. This is an addendum to original report dictated by Patricia Storey CNP, please refer to Patricia's note for full detail Patient is a 76-year-old gentleman with all the medical problems mentioned below who came in for CHF exacerbation. Patient also appears to have sleep apnea based on his body habitus but he told me that he has never been tested. Patient was noted to have some erythema on the left lower extremity and scabs from his dog scratching him. There was a concern or for cellulitis secondary to dog scratch. Patient was started on broad-spectrum antibiotics were consulted to evaluate the patient and make further recommendations. Currently patient appears comfortable his ankle is swollen on the left lower extremity but there is no obvious cellulitis that I can see right now. At this point DC IV antibiotics started the patient on Augmentin. Duration of treatment probably 10 days
--- NOTE | 2017-08-19 11:10 | Internal Med Progress Note ---
Date of Encounter: 08/19/17 Time of Encounter: 11:04 - Assessment and plan (1) CHF exacerbation Current Visit: Yes Status: Acute Assessment and plan: Mild exacerbation. Respiratory status near baseline. O2 sat 95 to 96 on Room Air. Significant BLE edema. Continue to diurese with IV lasix 40 mg BID (takes lasix 80 mg QD at home). Obtain repeat ECHO with definity. Continue home lisinopril and aldactone. Monitor daily weights and strict I&O. Cardiac diet. Cardiology consult and appreciate input Qualifiers: Heart failure type: systolic Qualified Code(s): I50.23 - Acute on chronic systolic (congestive) heart failure (2) Cellulitis of left lower extremity without foot Current Visit: Yes Status: Acute Assessment and plan: Two smalled scabbed skin wounds on left medial lower leg with surrounding warmth and erythema but no induration. Concern for cellulitis. ID consult re antibiotic use (3) Headache Current Visit: Yes Status: Resolved Assessment and plan: tylenol and norco PRN. Qualifiers: Headache type: unspecified Headache chronicity pattern: acute headache Intractability: not intractable Qualified Code(s): R51 - Headache (4) HLD (hyperlipidemia) Current Visit: Yes Status: Chronic Assessment and plan: Continue home meds. Qualifiers: Hyperlipidemia type: mixed hyperlipidemia Qualified Code(s): E78.2 - Mixed hyperlipidemia (5) HTN (hypertension) Current Visit: Yes Status: Chronic Assessment and plan: Continue home meds. Qualifiers: Hypertension type: essential hypertension Qualified Code(s): I10 - Essential (primary) hypertension (6) GERD (gastroesophageal reflux disease) Current Visit: Yes Status: Chronic Assessment and plan: Continue home meds. Qualifiers: Esophagitis presence: without esophagitis Qualified Code(s): K21.9 - Gastro -esophageal reflux disease without esophagitis (7) Gout Current Visit: Yes Status: Chronic Assessment and plan: Continue home meds. Qualifiers: Gout site: unspecified site Gout etiology: unspecified cause Chronicity: chronic Presence of tophus: without tophus Qualified Code(s): M1A.9XX0 - Chronic gout, unspecified, without tophus (tophi) (8) DVT prophylaxis Current Visit: Yes Status: Acute Assessment and plan: Continue home pradaxa dose. (9) Type II diabetes mellitus Current Visit: Yes Status: Chronic Assessment and plan: accuchecks and low dose SSI QID AC/HS. Continue home levemir. Qualifiers: Diabetes mellitus usp insulin use: with usp use Diabetes mellitus complication status: with neurologic complications Diabetes mellitus complication detail: with polyneuropathy Qualified Code(s): E11.42 - Type 2 diabetes mellitus with diabetic polyneuropathy; Z79.4 - alf (current) use of insulin; Z79.4 - terminal make up operator (current) use of insulin; Z79.4 - alf ( current) use of insulin; Z79.4 - terminal make up operator (current) use of insulin - Time Spent With Patient Total time spent is greater than 50% in coordination of care (as documented) at patient's floor/unit and/or counseling patient: - Subjective Interval history: Patient is lying in bed in states he feels much better than when he came in. He still has lower extremity edema but feels it might be slightly improved this morning. - Constitutional Vitals: Temp Pulse Resp BP Pulse Ox 97.6 F 75 20 167/86 95 08/19/17 07:34 08/19/17 07:34 08/19/17 07:34 08/19/17 07:34 08/19/17 07:34 General appearance: Present: cooperative, A&O X 3, pleasant, obese, answers questions appropriately - Head Head exam: Present: atraumatic, normocephalic - Eye Eye exam: Present: PERRL, conjuntiva pink, sclera anicteric Pupils: Present: PERRL - Neck Neck exam general surgery: Present: supple, trachea midline. Absent: lymphadenopathy - Respiratory Respiratory exam: Present: decreased breath sounds. Absent: accessory muscle use, rales, rhonchi, wheezes - Cardiovascular Cardiovascular exam: Present: RRR, +S1, +S2. Absent: diastolic murmur, gallop, rubs, systolic murmur - GI/Abdominal GI/Abdominal exam: Present: normal bowel sounds, no peritoneal signs. Absent: distended, guarding, tenderness Additional comments: Obese protuberant and full - Extremities Exam Extremities exam: Present: pedal edema, warm, radial pulses palpable and symmetrical. Absent: calf tenderness, cyanotic Additional comments: Bilateral lower extremity edema with rigors skin changes/venous stasis changes and areas of scabbed scratches with redness and tenderness bilaterally - Neurological Exam Neurological exam: Present: alert, CN II-XII intact, oriented X3, no focal deficits. Absent: pronater drift, facial droop, speech deficit - Skin Skin exam: Present: dry, erythema, normal color, warm Additional comments: lower extremity cellulitis changes Internal Medicine: Result - Labs CBC & Chem 7: 08/19/17 03:11 08/19/17 03:11 Labs: Short CBC 08/19/17 Range/Units 03:11 WBC 7.6 (4.3-11.1) K/mcL Hgb 12.4 L (12.9-16.9) g/dL Hct 37.7 (37.5-50.1) % Plt Count 174 (140-400) K/mcL Neutrophils # 4.7 (1.6-8.9) K/mcL BMP 08/19/17 03:11 Sodium 137 Potassium 3.8 Chloride 101 Carbon Dioxide 28 BUN 20 Creatinine 1.35 H Glucose 121 H Calcium 9.2 Consult Discharge Plan - Plan [facility]errals: [facility] [Primary Care Provider] - - Patient Problem List (1) CHF exacerbation Status: Acute Qualifiers: Heart failure type: systolic Qualified Code(s): I50.23 - Acute on chronic systolic (congestive) heart failure (2) Cellulitis of left lower extremity without foot Status: Acute (3) Headache Status: Acute Qualifiers: Headache type: unspecified Headache chronicity pattern: acute headache Intractability: not intractable Qualified Code(s): R51 - Headache (4) HLD (hyperlipidemia) Status: Chronic Qualifiers: Hyperlipidemia type: mixed hyperlipidemia Qualified Code(s): E78.2 - Mixed hyperlipidemia (5) HTN (hypertension) Status: Chronic Qualifiers: Hypertension type: essential hypertension Qualified Code(s): I10 - Essential (primary) hypertension (6) GERD (gastroesophageal reflux disease) Status: Acute Qualifiers: Esophagitis presence: without esophagitis Qualified Code(s): K21.9 - Gastro -esophageal reflux disease without esophagitis (7) Gout Status: Acute Qualifiers: Gout site: unspecified site Gout etiology: unspecified cause Chronicity: chronic Presence of tophus: without tophus Qualified Code(s): M1A.9XX0 - Chronic gout, unspecified, without tophus (tophi) (8) DVT prophylaxis Status: Acute (9) Type II diabetes mellitus Status: Chronic Qualifiers: Diabetes mellitus usp insulin use: with usp use Diabetes mellitus complication status: with neurologic complications Diabetes mellitus complication detail: with polyneuropathy Qualified Code(s): E11.42 - Type 2 diabetes mellitus with diabetic polyneuropathy; Z79.4 - terminal make up operator (current) use of insulin; Z79.4 - alf (current) use of insulin; Z79.4 - alf ( current) use of insulin; Z79.4 - terminal make up operator (current) use of insulin - Reoccurence Is this a re-occurence?: No
[2017-08-19] MEDS: METHYLPHENIDATE HCL 18 MG PO SCH (11:59)
[2017-08-19] MEDS: Lactobacillus 1 EACH CAP.SPRINK PO SCH (12:39)
[2017-08-19] MEDS: *HR* Amiodarone 200 MG TABLET PO SCH (14:09)
[2017-08-19] MEDS: Metoprolol XL (24 HR) Succ 50 MG TAB.ER.24H PO SCH (14:09)
[2017-08-19] MEDS: *HR* HYDROcodone/Acet 5/325 mg TABLET PO PRN (16:35)
[2017-08-19] MEDS: Silvasorb 44.4 ML TUBE TP SCH (16:37)
[2017-08-20 06:54] LABS: Hematocrit 40.6 % (37.5-50.1); Hemoglobin 13.1 g/dL (12.9-16.9); Mean Corpuscular HGB Conc 32.3 g/dL (31.6-35.5); Mean Corpuscular Hemoglobin 30.2 pg (28.0-33.3); Mean Corpuscular Volume 93.5 fL (83.0-100.0); Mean Platelet Volume 10.8 fL (9.4-12.4); Platelet Count 162 K/mcL (140-400); Red Blood Count 4.34 M/mcL (4.19-5.50); Red Cell Distribution Width 15.6 % (11.5-14.5)
[2017-08-20 07:12] LABS: BUN/Creatinine Ratio 12 (6-26); Blood Urea Nitrogen 16 mg/dL (8-23); Calcium 9.1 mg/dL (8.6-10.3); Carbon Dioxide 26 mEq/L (23-29); Chloride 103 mEq/L (98-107); Glucose 187 mg/dL (70-105); Osmolality,Calculated 292 (280-300); Potassium 4.1 mEq/L (3.5-5.1); Sodium 138 mEq/L (136-145); eGFR For African Americans > 60 (> 60); eGFR For Non-African Americans 50 (> 60)
[2017-08-20] MEDS: *HR* Dabigatran 150 MG CAPSULE PO SCH ×2 (09:18→21:57)
[2017-08-20] MEDS: Spironolactone 25 MG TABLET PO SCH (09:18)
[2017-08-20] MEDS: Finasteride 5 MG TABLET PO SCH (09:18)
[2017-08-20] MEDS: *HR* Amiodarone 200 MG TABLET PO SCH (09:18)
[2017-08-20] MEDS: Gabapentin 300 MG CAPSULE PO SCH ×2 (09:18→21:56)
[2017-08-20] MEDS: Lisinopril 20 MG TABLET PO SCH (09:18)
[2017-08-20] MEDS: Isosorbide MONOnitrate (24 HR) 60 MG TAB.ER.24H PO SCH (09:18)
[2017-08-20] MEDS: Lactobacillus 1 EACH CAP.SPRINK PO SCH (09:18)
[2017-08-20] MEDS: *HR* Morphine Sulfate SR (12 HR) 15 MG TABLET.ER PO SCH ×2 (09:18→21:56)
[2017-08-20] MEDS: Metoprolol XL (24 HR) Succ 50 MG TAB.ER.24H PO SCH (09:19)
[2017-08-20] MEDS: Furosemide 40 MG/4 ML VIAL IVP SCH ×2 (09:19→17:24)
[2017-08-20] MEDS: Insulin LISPRO 300 UNITS/3 ML VIAL SQ SCH ×4 (09:20→22:03)
--- NOTE | 2017-08-20 09:20 | Electrocardiograph Report ---
[employer] Test Date: 2017-08-18 Pat Name: Ze Current Department: [facility] Room: 3B12 Gender: M Supervisor Lime: : 1940 Requested By: Mitch Flanagan Order Number: [id number] Reading MD: Chucky Alejandre Measurements Intervals [place] Rate: 73 P: TN: 0 QRS: -84 QRSD: 139 T: 76 QT: 445 QTc: 470 Interpretive Statements ELECTRONIC VENTRICULAR PACEMAKER ABNORMAL RHYTHM ECG Electronically Signed On 08-20-2017 9:18:40 EDT by Chucky Alejandre
[2017-08-20] MEDS: Insulin DETEMIR 100 UNIT/ML X5UNITS SQ SCH (09:29)
[2017-08-20] MEDS: METHYLPHENIDATE HCL 18 MG PO SCH (11:56)
[2017-08-20] MEDS: Silvasorb 44.4 ML TUBE TP SCH (12:04)
--- NOTE | 2017-08-20 13:12 | Internal Med Progress Note ---
Date of Encounter: 08/20/17 Time of Encounter: 13:10 - Assessment and plan (1) CHF exacerbation Current Visit: Yes Status: Acute Assessment and plan: Mild exacerbation. Respiratory status near baseline. O2 sats remian 95 to 96 on Room Air. Significant BLE edema with slow improvment. Continue to diurese with IV lasix 40 mg BID (takes lasix 80 mg QD at home). Obtained ECHO with mild to moderate reduction in LV systolic function. Atypical septal motion consistent with a paced rhythm and moderately dilated left ventricle. Cardiology saw the patient and in impression was written as heart failure with reduced EF likely secondary to dietary noncompliance with patient eating out every day. He tells me fast food daily. Atrial fibrillation, morbid obesity, and essential hypertension. They recommend cautious diuresis, monitor creatinine, daily weights with strict I's and O's. Continue the ARLEEN inhibitor, beta kermit, Aldactone,/loop diuretic therapy Recommend anticoagulation for atrial fibrillation. Future readmissions can be expected with no further inpatient cardiac recommendations at this time and they will follow up as an outpatient Cardiac diet. Cardiology consult and appreciate input Qualifiers: Heart failure type: systolic Qualified Code(s): I50.23 - Acute on chronic systolic (congestive) heart failure (2) Cellulitis of left lower extremity without foot Current Visit: Yes Status: Acute Assessment and plan: Two smalled scabbed skin wounds on left medial lower leg with surrounding warmth and erythema but no induration. Concern for cellulitis. ID consulted and recommend Augmentin 875 mg twice a day for 14 day course. Wound care consult and dressings per their recommendations (3) Headache Current Visit: Yes Status: Resolved Assessment and plan: tylenol and norco as needed Qualifiers: Headache type: unspecified Headache chronicity pattern: acute headache Intractability: not intractable Qualified Code(s): R51 - Headache (4) HLD (hyperlipidemia) Current Visit: Yes Status: Chronic Assessment and plan: Continue statin. Qualifiers: Hyperlipidemia type: mixed hyperlipidemia Qualified Code(s): E78.2 - Mixed hyperlipidemia (5) HTN (hypertension) Current Visit: Yes Status: Chronic Assessment and plan: Continue home meds. Blood pressure is stable Qualifiers: Hypertension type: essential hypertension Qualified Code(s): I10 - Essential (primary) hypertension (6) GERD (gastroesophageal reflux disease) Current Visit: Yes Status: Chronic Assessment and plan: Continue home medication. Qualifiers: Esophagitis presence: without esophagitis Qualified Code(s): K21.9 - Gastro -esophageal reflux disease without esophagitis (7) Gout Current Visit: Yes Status: Chronic Assessment and plan: Continue home medication. Qualifiers: Gout site: unspecified site Gout etiology: unspecified cause Chronicity: chronic Presence of tophus: without tophus Qualified Code(s): M1A.9XX0 - Chronic gout, unspecified, without tophus (tophi) (8) DVT prophylaxis Current Visit: Yes Status: Acute Assessment and plan: Continue home pradaxa (9) Type II diabetes mellitus Current Visit: Yes Status: Chronic Assessment and plan: Continue accuchecks and low dose SSI QID AC/HS. Continue home levemir. Qualifiers: Diabetes mellitus long term care social worker insulin use: with long term care social worker use Diabetes mellitus complication status: with neurologic complications Diabetes mellitus complication detail: with polyneuropathy Qualified Code(s): E11.42 - Type 2 diabetes mellitus with diabetic polyneuropathy; Z79.4 - buttermaker continuous churn (current) use of insulin; Z79.4 - assisted (current) use of insulin; Z79.4 - buttermaker continuous churn ( current) use of insulin; Z79.4 - buttermaker continuous churn (current) use of insulin (10) Paroxysmal atrial fibrillation Current Visit: Yes Status: Chronic Assessment and plan: V paced rhythm on pyridoxine 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 He is feeling better. He is agreeable to go for short term rehab if needed. - Constitutional Vitals: Temp Pulse Resp BP Pulse Ox 97.8 F 75 16 163/88 97 08/20/17 11:00 08/20/17 11:00 08/20/17 07:00 08/20/17 11:00 08/20/17 11:00 General appearance: Present: cooperative, A&O X 3, pleasant, obese, answers questions appropriately - Head Head exam: Present: atraumatic, normocephalic - Eye Eye exam: Present: PERRL, conjuntiva pink, sclera anicteric Pupils: Present: PERRL - Neck Neck exam general surgery: Present: supple, trachea midline. Absent: lymphadenopathy - Respiratory Respiratory exam: Present: decreased breath sounds, CTAB. Absent: accessory muscle use, rales, rhonchi, wheezes - Cardiovascular Cardiovascular exam: Present: irregular rhythm, +S1, +S2. Absent: diastolic murmur, gallop, rubs, systolic murmur - GI/Abdominal GI/Abdominal exam: Present: normal bowel sounds, soft, no peritoneal signs. Absent: distended, tenderness Additional comments: Protuberant and full but nontender - Extremities Exam Extremities exam: Present: pedal edema, warm, radial pulses palpable and symmetrical. Absent: calf tenderness, cyanotic - Neurological Exam Neurological exam: Present: alert, CN II-XII intact, oriented X3, no focal deficits. Absent: pronater drift, facial droop, speech deficit - Skin Skin exam: Present: dry, normal color, warm Additional comments: Scattered scabbed abrasion/scratches on lower extremities with peripheral vascular skin changes and some cytologic changes, no drainage noted Internal Medicine: Result - Labs CBC & Chem 7: 08/20/17 06:33 08/20/17 06:33 Labs: Short CBC 08/20/17 Range/Units 06:33 WBC 7.1 (4.3-11.1) K/mcL Hgb 13.1 (12.9-16.9) g/dL Hct 40.6 (37.5-50.1) % Plt Count 162 (140-400) K/mcL [facility] 08/20/17 06:33 Sodium 138 Potassium 4.1 Chloride 103 Carbon Dioxide 26 BUN 16 Creatinine 1.37 H Glucose 187 H Calcium 9.1 Consult Discharge Plan - Plan [facility]: [facility] Care Provider[facility] - 09/09/17 12:45 pm
[2017-08-20] MEDS: *HR* HYDROcodone/Acet 5/325 mg TABLET PO PRN (20:29)
[2017-08-21] MEDS: Furosemide 40 MG/4 ML VIAL IVP SCH ×2 (08:14→17:24)
[2017-08-21] MEDS: Gabapentin 300 MG CAPSULE PO SCH ×2 (08:15→20:44)
[2017-08-21] MEDS: *HR* Morphine Sulfate SR (12 HR) 15 MG TABLET.ER PO SCH ×2 (08:15→20:45)
[2017-08-21] MEDS: *HR* Dabigatran 150 MG CAPSULE PO SCH ×2 (08:15→20:46)
[2017-08-21] MEDS: Lactobacillus 1 EACH CAP.SPRINK PO SCH (08:15)
[2017-08-21] MEDS: *HR* Amiodarone 200 MG TABLET PO SCH (08:15)
[2017-08-21] MEDS: Metoprolol XL (24 HR) Succ 50 MG TAB.ER.24H PO SCH (08:15)
[2017-08-21] MEDS: Isosorbide MONOnitrate (24 HR) 60 MG TAB.ER.24H PO SCH (08:15)
[2017-08-21] MEDS: Finasteride 5 MG TABLET PO SCH (08:15)
[2017-08-21] MEDS: Spironolactone 25 MG TABLET PO SCH (08:15)
[2017-08-21] MEDS: Lisinopril 20 MG TABLET PO SCH (08:15)
[2017-08-21] MEDS: Insulin LISPRO 300 UNITS/3 ML VIAL SQ SCH ×4 (08:16→20:47)
[2017-08-21] MEDS: METHYLPHENIDATE HCL 18 MG PO SCH (08:16)
[2017-08-21] MEDS: Silvasorb 44.4 ML TUBE TP SCH (08:18)
[2017-08-21] MEDS: Insulin DETEMIR 100 UNIT/ML X5UNITS SQ SCH (08:33)
--- NOTE | 2017-08-21 11:41 | Internal Med Progress Note ---
Date of Encounter: 08/21/17 Time of Encounter: 11:39 - Assessment and plan (1) CHF exacerbation Current Visit: Yes Status: Acute Assessment and plan: Mild exacerbation. Respiratory status near baseline. O2 sats remian 95 to 96 on Room Air. Significant BLE edema with slow improvment, little better. Continue to diurese with IV lasix 40 mg BID (takes lasix 80 mg QD at home). Obtained ECHO with mild to moderate reduction in LV systolic function. Atypical septal motion consistent with a paced rhythm and moderately dilated left ventricle. Cardiology saw the patient and in impression was written as heart failure with reduced EF likely secondary to dietary noncompliance with patient eating out every day. He tells me fast food daily. Atrial fibrillation, morbid obesity, and essential hypertension. They recommend cautious diuresis, monitor creatinine, daily weights with strict I's and O's. Continue the ARLEEN inhibitor, beta kermit, Aldactone,/loop diuretic therapy Recommend anticoagulation for atrial fibrillation. Future readmissions can be expected with no further inpatient cardiac recommendations at this time, they will follow up as an outpatient Cardiac diet. Cardiology consult and appreciate input Qualifiers: Heart failure type: systolic Qualified Code(s): I50.23 - Acute on chronic systolic (congestive) heart failure (2) Cellulitis of left lower extremity without foot Current Visit: Yes Status: Acute Assessment and plan: Two smalled scabbed skin wounds on left medial lower leg with surrounding warmth and erythema but no induration. Concern for cellulitis. ID consulted and recommend Augmentin 875 mg twice a day for 14 day course. Wound care consult and dressings per their recommendations Area less red and warm, decreased tenderness (3) Headache Current Visit: Yes Status: Resolved Assessment and plan: tylenol and norco as needed, painfree now Qualifiers: Headache type: unspecified Headache chronicity pattern: acute headache Intractability: not intractable Qualified Code(s): R51 - Headache (4) HLD (hyperlipidemia) Current Visit: Yes Status: Chronic Assessment and plan: Continue home statin. Qualifiers: Hyperlipidemia type: mixed hyperlipidemia Qualified Code(s): E78.2 - Mixed hyperlipidemia (5) HTN (hypertension) Current Visit: Yes Status: Chronic Assessment and plan: Continue home meds. Blood pressure stable Qualifiers: Hypertension type: essential hypertension Qualified Code(s): I10 - Essential (primary) hypertension (6) GERD (gastroesophageal reflux disease) Current Visit: Yes Status: Chronic Assessment and plan: Continue home medication. Qualifiers: Esophagitis presence: without esophagitis Qualified Code(s): K21.9 - Gastro -esophageal reflux disease without esophagitis (7) Gout Current Visit: Yes Status: Chronic Assessment and plan: Continue home medications. Qualifiers: Gout site: unspecified site Gout etiology: unspecified cause Chronicity: chronic Presence of tophus: without tophus Qualified Code(s): M1A.9XX0 - Chronic gout, unspecified, without tophus (tophi) (8) DVT prophylaxis Current Visit: Yes Status: Acute Assessment and plan: Continue pradaxa (9) Type II diabetes mellitus Current Visit: Yes Status: Chronic Assessment and plan: Continue accuchecks and low dose SSI QID AC/HS. Continue home levemir. glucose okay Qualifiers: Diabetes mellitus senior care insulin use: with senior care use Diabetes mellitus complication status: with neurologic complications Diabetes mellitus complication detail: with polyneuropathy Qualified Code(s): E11.42 - Type 2 diabetes mellitus with diabetic polyneuropathy; Z79.4 - marine oil terminal superintendent (current) use of insulin; Z79.4 - custodial (current) use of insulin; Z79.4 - marine oil terminal superintendent ( current) use of insulin; Z79.4 - custodial (current) use of insulin (10) Paroxysmal atrial fibrillation Current Visit: Yes Status: Chronic Assessment and plan: V paced rhythm on pyridoxine 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 Awaiting SNF at [place] - Constitutional Vitals: Temp Pulse Resp BP Pulse Ox 98.2 F 70 17 130/71 94 08/21/17 11:34 08/21/17 11:34 08/21/17 11:34 08/21/17 11:34 08/21/17 11:34 General appearance: Present: cooperative, A&O X 3, pleasant, obese, answers questions appropriately - Head Head exam: Present: atraumatic, normocephalic - Eye Eye exam: Present: PERRL, conjuntiva pink, sclera anicteric Pupils: Present: PERRL - Neck Neck exam general surgery: Present: supple, trachea midline. Absent: lymphadenopathy - Respiratory Respiratory exam: Present: decreased breath sounds, CTAB. Absent: accessory muscle use, rales, rhonchi, wheezes - Cardiovascular Cardiovascular exam: Present: RRR, +S1, +S2. Absent: diastolic murmur, gallop, rubs, systolic murmur - GI/Abdominal GI/Abdominal exam: Present: normal bowel sounds, no peritoneal signs. Absent: distended, tenderness Additional comments: obese and full - Extremities Exam Extremities exam: Present: pedal edema, warm, radial pulses palpable and symmetrical. Absent: calf tenderness, cyanotic - Neurological Exam Neurological exam: Present: CN II-XII intact, oriented X3, no focal deficits. Absent: pronater drift, facial droop, speech deficit - Skin Skin exam: Present: dry, normal color, warm Additional comments: scratches on lower extremity covered with dry dressing Internal Medicine: Result - Labs CBC & Chem 7: 08/20/17 06:33 08/20/17 06:33 Consult Discharge Plan - Plan [facility]: [facility]Primary Care Provider[facility] - 09/09/17 12:45 pm
[2017-08-22 05:56] LABS: Calcium 9.7 mg/dL (8.6-10.3); Potassium 4.3 mEq/L (3.5-5.1)
[2017-08-22] MEDS: Furosemide 40 MG/4 ML VIAL IVP SCH ×2 (08:10→16:40)
[2017-08-22] MEDS: *HR* Dabigatran 150 MG CAPSULE PO SCH ×2 (08:10→20:04)
[2017-08-22] MEDS: Insulin LISPRO 300 UNITS/3 ML VIAL SQ SCH ×4 (08:10→20:04)
[2017-08-22] MEDS: Isosorbide MONOnitrate (24 HR) 60 MG TAB.ER.24H PO SCH (08:11)
[2017-08-22] MEDS: Spironolactone 25 MG TABLET PO SCH (08:11)
[2017-08-22] MEDS: Finasteride 5 MG TABLET PO SCH (08:11)
[2017-08-22] MEDS: Lactobacillus 1 EACH CAP.SPRINK PO SCH (08:11)
[2017-08-22] MEDS: Gabapentin 300 MG CAPSULE PO SCH ×2 (08:11→20:04)
[2017-08-22] MEDS: Lisinopril 20 MG TABLET PO SCH (08:11)
[2017-08-22] MEDS: *HR* Morphine Sulfate SR (12 HR) 15 MG TABLET.ER PO SCH ×2 (08:11→22:39)
[2017-08-22] MEDS: METHYLPHENIDATE HCL 18 MG PO SCH (08:12)
[2017-08-22] MEDS: Silvasorb 44.4 ML TUBE TP SCH (08:12)
[2017-08-22] MEDS: *HR* Amiodarone 200 MG TABLET PO SCH (08:12)
[2017-08-22] MEDS: Metoprolol XL (24 HR) Succ 50 MG TAB.ER.24H PO SCH (08:12)
[2017-08-22] MEDS: Insulin DETEMIR 100 UNIT/ML X5UNITS SQ SCH (09:00)
--- NOTE | 2017-08-22 11:13 | Internal Med Progress Note ---
Date of Encounter: 08/22/17 Time of Encounter: 11:09 - Assessment and plan (1) CHF exacerbation Current Visit: Yes Status: Acute Assessment and plan: Mild exacerbation. Respiratory status near baseline. O2 sats remian 95 to 96 on Room Air. Significant BLE edema with slow improvment, better today, much decreased edema. Continue to diurese with IV lasix 40 mg BID (takes lasix 80 mg QD at home). Obtained ECHO with mild to moderate reduction in LV systolic function. Atypical septal motion consistent with a paced rhythm and moderately dilated left ventricle. Cardiology saw the patient and in impression was written as heart failure with reduced EF likely secondary to dietary noncompliance with patient eating out every day. He tells me fast food daily. Atrial fibrillation, morbid obesity, and essential hypertension. They recommend cautious diuresis, monitor creatinine, daily weights with strict I's and O's. Continue the ARLEEN inhibitor, beta kermit, Aldactone,/loop diuretic therapy Recommend anticoagulation for atrial fibrillation. Future readmissions can be expected with no further inpatient cardiac recommendations at this time, they will follow up as an outpatient Cardiac diet. Cardiology consult and appreciate input Qualifiers: Heart failure type: systolic Qualified Code(s): I50.23 - Acute on chronic systolic (congestive) heart failure (2) Cellulitis of left lower extremity without foot Current Visit: Yes Status: Acute Assessment and plan: Two smalled scabbed skin wounds on left medial lower leg with surrounding warmth and erythema but no induration. Changes of cellulitis are reduced on current treatment ID consulted and recommend Augmentin 875 mg twice a day for 14 day course. Wound care consult and dressings per their recommendations Area less red and warm, decreased tenderness (3) Headache Current Visit: Yes Status: Resolved Assessment and plan: tylenol and norco as needed, headache resolved Qualifiers: Headache type: unspecified Headache chronicity pattern: acute headache Intractability: not intractable Qualified Code(s): R51 - Headache (4) HLD (hyperlipidemia) Current Visit: Yes Status: Chronic Assessment and plan: Continue the home statin. Qualifiers: Hyperlipidemia type: mixed hyperlipidemia Qualified Code(s): E78.2 - Mixed hyperlipidemia (5) HTN (hypertension) Current Visit: Yes Status: Chronic Assessment and plan: Continue home meds. Blood pressure remains stable Qualifiers: Hypertension type: essential hypertension Qualified Code(s): I10 - Essential (primary) hypertension (6) GERD (gastroesophageal reflux disease) Current Visit: Yes Status: Chronic Assessment and plan: Continue home medication. Symptoms are controlled Qualifiers: Esophagitis presence: without esophagitis Qualified Code(s): K21.9 - Gastro -esophageal reflux disease without esophagitis (7) Gout Current Visit: Yes Status: Chronic Assessment and plan: Continue home medications. Symptoms are controlled Qualifiers: Gout site: unspecified site Gout etiology: unspecified cause Chronicity: chronic Presence of tophus: without tophus Qualified Code(s): M1A.9XX0 - Chronic gout, unspecified, without tophus (tophi) (8) DVT prophylaxis Current Visit: Yes Status: Acute Assessment and plan: Continue home pradaxa (9) Type II diabetes mellitus Current Visit: Yes Status: Chronic Assessment and plan: Continue accuchecks and low dose SSI QID AC/HS. Continue home levemir. glucose with good control Qualifiers: Diabetes mellitus long-term insulin use: with long-term use Diabetes mellitus complication status: with neurologic complications Diabetes mellitus complication detail: with polyneuropathy Qualified Code(s): E11.42 - Type 2 diabetes mellitus with diabetic polyneuropathy; Z79.4 - exterminator (current) use of insulin; Z79.4 - exterminator (current) use of insulin; Z79.4 - exterminator ( current) use of insulin; Z79.4 - exterminator (current) use of insulin (10) Paroxysmal atrial fibrillation Current Visit: Yes Status: Chronic Assessment and plan: V paced rhythm on pyridoxine 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 He said he is just a little bit off. His thinks his legs are very much improved and his breathing is better. He is aware of discharge plan for [facility] and is wondering what time he will leave tomorrow. - Constitutional Vitals: Temp Pulse Resp BP Pulse Ox 98.2 F 70 20 157/84 96 08/22/17 07:19 08/22/17 07:19 08/22/17 07:19 08/22/17 07:19 08/22/17 07:19 General appearance: Present: cooperative, A&O X 3, pleasant, obese, answers questions appropriately - Head Head exam: Present: atraumatic, normocephalic - Eye Eye exam: Present: PERRL, conjuntiva pink, sclera anicteric Pupils: Present: PERRL - Neck Neck exam general surgery: Present: supple, trachea midline. Absent: lymphadenopathy - Respiratory Respiratory exam: Present: CTAB. Absent: accessory muscle use, rales, rhonchi, wheezes - Cardiovascular Cardiovascular exam: Present: RRR, +S1, +S2. Absent: diastolic murmur, gallop, rubs, systolic murmur - GI/Abdominal GI/Abdominal exam: Present: normal bowel sounds, soft, no peritoneal signs. Absent: distended, tenderness Additional comments: full - Extremities Exam Extremities exam: Present: pedal edema, warm, radial pulses palpable and symmetrical. Absent: calf tenderness, cyanotic - Neurological Exam Neurological exam: Present: alert, CN II-XII intact, oriented X3, no focal deficits. Absent: pronater drift, facial droop, speech deficit - Skin Skin exam: Present: dry, normal color, warm Additional comments: Wounds on lower extremities covered with dry dressings and remain intact less cellulitis changes Internal Medicine: Result - Labs CBC & Chem 7: 08/20/17 06:33 08/22/17 05:26 Labs: BMP 08/22/17 05:26 Sodium 139 Potassium 4.3 Chloride 101 Carbon Dioxide 30 H BUN 20 Creatinine 1.52 H Glucose 222 H Calcium 9.7 Consult Discharge Plan - Plan [facility]errals: [facility] [Primary Care Provider[facility] - 09/09/17 12:45 pm
[2017-08-22] MEDS: *HR* HYDROcodone/Acet 5/325 mg TABLET PO PRN ×2 (16:39→22:38)
[2017-08-23] MEDS: Furosemide 40 MG/4 ML VIAL IVP SCH (08:21)
[2017-08-23] MEDS: Finasteride 5 MG TABLET PO SCH (08:22)
[2017-08-23] MEDS: Gabapentin 300 MG CAPSULE PO SCH (08:22)
[2017-08-23] MEDS: Insulin DETEMIR 100 UNIT/ML X5UNITS SQ SCH (08:22)
[2017-08-23] MEDS: Isosorbide MONOnitrate (24 HR) 60 MG TAB.ER.24H PO SCH (08:23)
[2017-08-23] MEDS: *HR* Dabigatran 150 MG CAPSULE PO SCH (08:23)
[2017-08-23] MEDS: *HR* Morphine Sulfate SR (12 HR) 15 MG TABLET.ER PO SCH (08:23)
[2017-08-23] MEDS: Lisinopril 20 MG TABLET PO SCH (08:23)
[2017-08-23] MEDS: Spironolactone 25 MG TABLET PO SCH (08:23)
[2017-08-23] MEDS: Insulin LISPRO 300 UNITS/3 ML VIAL SQ SCH ×2 (08:23→11:47)
[2017-08-23] MEDS: *HR* Amiodarone 200 MG TABLET PO SCH (08:23)
[2017-08-23] MEDS: Lactobacillus 1 EACH CAP.SPRINK PO SCH (08:31)
[2017-08-23] MEDS: Metoprolol XL (24 HR) Succ 50 MG TAB.ER.24H PO SCH (08:31)
--- NOTE | 2017-08-23 10:10 | Discharge Summary ---
- NOTES TO OUTPATIENT PROVIDER Notes to Outpatient Provider: Patient discharged on Augmentin for his lower extremity wounds from dog scratches. Patient required diuresis for his edema and CHF. Patient needs to avoid fast food and try to lose some weight. Follow- up with cardiology as outpatient. Follow-up PCP Date of Encounter: 08/23/17 Time of Encounter: 09:56 - Discharge Diagnosis (1) CHF exacerbation Priority: Primary Status: Acute Qualifiers: Heart failure type: systolic Qualified Code(s): I50.23 - Acute on chronic systolic (congestive) heart failure (2) Cellulitis of left lower extremity without foot Priority: Primary Status: Acute (3) Headache Priority: Primary Status: Resolved Qualifiers: Headache type: unspecified Headache chronicity pattern: acute headache Intractability: not intractable Qualified Code(s): R51 - Headache (4) HLD (hyperlipidemia) Priority: Primary Status: Chronic Qualifiers: Hyperlipidemia type: mixed hyperlipidemia Qualified Code(s): E78.2 - Mixed hyperlipidemia (5) HTN (hypertension) Priority: Primary Status: Chronic Qualifiers: Hypertension type: essential hypertension Qualified Code(s): I10 - Essential (primary) hypertension (6) GERD (gastroesophageal reflux disease) Priority: Primary Status: Chronic Qualifiers: Esophagitis presence: without esophagitis Qualified Code(s): K21.9 - Gastro -esophageal reflux disease without esophagitis (7) Gout Priority: Primary Status: Chronic Qualifiers: Gout site: unspecified site Gout etiology: unspecified cause Chronicity: chronic Presence of tophus: without tophus Qualified Code(s): M1A.9XX0 - Chronic gout, unspecified, without tophus (tophi) (8) Type II diabetes mellitus Priority: Primary Status: Chronic Qualifiers: 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 Diabetes mellitus complication status: with neurologic complications Diabetes mellitus complication detail: with polyneuropathy Qualified Code(s): E11.42 - Type 2 diabetes mellitus with diabetic polyneuropathy; Z79.4 - keno terminal operator (current) use of insulin; Z79.4 - snf (current) use of insulin; Z79.4 - snf ( current) use of insulin; Z79.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 Macedo is a 76 year old male who presented the ED from the pain management clinic due to increased bilateral lower extremity edema and worsening shortness of breath. He was at a routine appointment and they told him to come over to the ER. He has had worsening edema and intermittent shortness of breath over the previous 3 weeks. He has a history of CHF that was previously well controlled. Dyspnea was worse on exertion. He has been having a hard time sleeping at night due to orthopnea. He denied chest pain palpitations nausea vomiting fever or chills. He also had some scratches on his lower legs with changes of cellulitis from being scratched by his dogs. Infectious disease and wound care were consulted. He has been started on Augmentin which will be completed in 5 days. Continue wound care. Cardiology saw the patient and recommends monitoring creatinine, daily weights, strict I's and O's, continue ARLEEN inhibitor, beta kermit, Aldactone therapy. Anticoagulation for atrial fibrillation. I will put cardiology as an outpatient. There are impression was he has heart failure is reduced EF likely secondary to dietary noncompliance as patient has been eating out nearly every day. He is also morbidly obese and weight reduction and dietary changes was recommended. He also chews tobacco and cessation was recommended. Limited echo revealed moderately decreased LV function but not well visualized. Continue Lasix. Also salt and fluid restriction. Fluid restriction of 1500 mL per day. Continue statin therapy. Continue Cordarone and Toprol as well. Patient is on multiple medications for chronic pain and follows at a pain clinic. He has been on room air here and satting in the low to mid 90s. Blood pressure is stable, pulse rate is in 70s and respiratory status had been 16-18. He has been afebrile. Discharged to [place] is pending. And has no questions. Discharge discussed with: patient, family, nurse, social work, case management - Time Spent with Patient Total time spent providing and/or coordinating discharge services: Less than 30 minutes (oral tobacco use, not interested in stopping) - Discharge Medications Prescriptions: Amoxicillin/Clavulanate [Augmentin] 875 mg PO BIDWM 5 Days #10 tablet Gabapentin [Neurontin] 600 mg PO BID 7 Days #14 tablet HYDROcodone/Acet 5/325 mg [[place] 5-325 mg] 2 tab PO TID 5 Days #30 tablet Morphine Sulfate [Arymo ER] 15 mg PO BID 5 Days #10 tab.po.er Promethazine [Phenergan] 25 mg PO DAILY #30 tablet Home Medications: Allopurinol [Zyloprim 300 MG] 300 mg PO DAILY 08/18/17 [History] Atorvastatin [Lipitor] 40 mg PO HS 08/18/17 [History] Dabigatran Etexilate Mesylate [Pradaxa] 150 mg PO BID 08/18/17 [History] Finasteride [Proscar] 5 mg PO DAILY 08/18/17 [History] Furosemide [Lasix] 40 mg PO BID 08/18/17 [History] Insulin ASPART [Novolog] 10 unit SQ TID 08/18/17 [History] Insulin Glargine,Hum.rec.anlog [Lantus Solostar] 48 unit SQ QAM 08/18/17 [ History] Isosorbide MONOnitrate (24 HR) [Imdur] 60 mg PO DAILY 08/18/17 [History] Lisinopril [Zestril] 40 mg PO DAILY 08/18/17 [History] Methylphenidate HCl [Concerta] 18 mg PO DAILY 08/18/17 [History] Omeprazole [PriLOSEC] 40 mg PO BID 08/18/17 [History] Potassium Chloride [Klor-Con 10] 10 meq PO DAILY 08/18/17 [History] Spironolactone [Aldactone] 25 mg PO DAILY 08/18/17 [History] metFORMIN [Glucophage] 500 mg PO BIDWM 08/18/17 [History] Amiodarone [Cordarone] 200 mg PO DAILY tablet 08/23/17 [Rx] Amoxicillin/Clavulanate [Augmentin] 875 mg PO BIDWM 5 Days #10 tablet 08/23/17 [ Rx] Gabapentin [Neurontin] 600 mg PO BID 7 Days #14 tablet 08/23/17 [Rx] HYDROcodone/Acet 5/325 mg [[place] 5-325 mg] 2 tab PO TID 5 Days #30 tablet [Rx] Lactobacillus [Culturelle] 2 each PO DAILY cap.sprink 08/23/17 [Rx] Lidocaine Patch [Lidoderm 5% patch] 1 each TP DAILY adh..patch 08/23/17 [Rx] Metoprolol XL (24 HR) Succ [Toprol Xl] 200 mg PO DAILY tab.er.24h 08/23/17 [Rx] Morphine Sulfate [Arymo ER] 15 mg PO BID 5 Days #10 tab.po.er 08/23/17 [Rx] Promethazine [Phenergan] 25 mg PO DAILY #30 tablet 08/23/17 [Rx] Silvasorb 1 appl TP DAILY tube 08/23/17 [Rx] Allergies/Adverse Reactions: 3 Allergy/AdvReac Type Severity Reaction Status Date / Time red dye AdvReac Flushing Verified 08/18/17 15:39 CT/MRI Dye Allergy Anaphylaxis Uncoded 08/18/17 15:39 Date of admission: 08/18/17 22:05 [facility] care physician: [facility] Consults: 08/19/17 08:07 Consult to Cardiology [CONS] Routine Comment: Consulting Provider: Cardiology Janice Reason for Consult: chf Time Notified: 08:08 Call Completed: Yes Consult to Infectious Diseases [CONS] Routine Consulting Provider: Infectious Disease Janice Reason for Consult: cellulitis from dog scratch on lower extremity Time Notified: 08:08 Call Completed: Yes 08/19/17 08:08 Consult to Wound Care [CONS] Routine Reason for Consult: wound lower extremity Time Notified: 08:09 Call Completed: No 08/19/17 14:40 Consult to Occupational Therapy [CONS] Routine Comment: Evaluate, develop and implement POC Reason for Consult: weakness,confusion Does patient have active BEDREST order?: No Is patient medically & hemodynamically stable?: Yes Consult to Physical Therapy [CONS] Routine Comment: Evaluate, develop and implement POC Reason for Consult: weakness/confusion Does patient have active BEDREST order?: No Is patient medically & hemodynamically stable?: Yes Discharging clinician: Carly Helms Anticipated date of discharge: 08/23/17 - Constitutional Vitals: Temp Pulse Resp BP Pulse Ox 97.9 F 74 16 142/70 95 08/23/17 06:38 08/23/17 06:38 08/23/17 06:38 08/23/17 06:38 08/23/17 06:38 General appearance: Present: cooperative, A&O X 3, pleasant, obese, answers questions appropriately - Head Head exam: Present: atraumatic, normocephalic - Eye Eye exam: Present: PERRL, conjuntiva pink, sclera anicteric Pupils: Present: PERRL - Neck Neck exam general surgery: Present: supple, trachea midline. Absent: lymphadenopathy - Respiratory Respiratory exam: Present: CTAB. Absent: accessory muscle use, rales, rhonchi, wheezes - Cardiovascular Cardiovascular exam: Present: RRR, +S1, +S2. Absent: diastolic murmur, gallop, rubs, systolic murmur - GI/Abdominal GI/Abdominal exam: Present: normal bowel sounds, soft, no peritoneal signs. Absent: distended, tenderness Additional comments: obese, full protubrant - Extremities Exam Extremities exam: Present: warm, radial pulses palpable and symmetrical. Absent : calf tenderness, cyanotic, pedal edema - Neurological Exam Neurological exam: Present: alert, CN II-XII intact, oriented X3, no focal deficits. Absent: pronater drift, facial droop, speech deficit - Skin Skin exam: Present: dry, normal color, warm Additional comments: Dry dressings intact to lower extremity wounds. Edema and cellulitis are much improved - Patient Status Disposition: Transfer [facility] Condition: Good Functional capacity at discharge: independent ambulation Overall status at discharge: patient is progressing back to baseline - Discharge Instructions Follow Up With: BRANDO,PCP [Primary Care Provider] - 09/09/17 12:45 pm Forms: ED Satisfaction Letter Additional Instructions: May need 2 L nasal cannula at night if desats - Diet and Activity Activity: increase activity as tolerated Diet: diabetic diet, low fat, low cholesterol, low salt diet, other (1500 cc fluid restriction)
--- NOTE | 2017-08-23 10:14 | Physician Discharge Referral ---
ExtendedCare Referral Info Transfer To: [place] Provider in Charge: emmanuel chen Institutional Level of Care: Skilled - Diagnosis (1) CHF exacerbation Priority: Primary Status: Acute (2) Cellulitis of left lower extremity without foot Priority: Primary Status: Acute (3) Headache Priority: Primary Status: Resolved (4) HLD (hyperlipidemia) Priority: Primary Status: Chronic (5) HTN (hypertension) Priority: Primary Status: Chronic (6) GERD (gastroesophageal reflux disease) Priority: Primary Status: Chronic (7) Gout Priority: Primary Status: Chronic (8) Type II diabetes mellitus Priority: Primary Status: Chronic (9) Paroxysmal atrial fibrillation Priority: Primary Status: Chronic (10) Chronic pain Priority: Primary Status: Chronic Prognosis: Good Aware of Diagnosis: Patient Aware of Prognosis: Patient - Transfer Medications Prescriptions: Amoxicillin/Clavulanate [Augmentin] 875 mg PO BIDWM 5 Days #10 tablet Gabapentin [Neurontin] 600 mg PO BID 7 Days #14 tablet HYDROcodone/Acet 5/325 mg [[place] 5-325 mg] 2 tab PO TID 5 Days #30 tablet Morphine Sulfate [Arymo ER] 15 mg PO BID 5 Days #10 tab.po.er Promethazine [Phenergan] 25 mg PO DAILY #30 tablet Home Medications: Allopurinol [Zyloprim 300 MG] 300 mg PO DAILY 08/18/17 [History] Atorvastatin [Lipitor] 40 mg PO HS 08/18/17 [History] Dabigatran Etexilate Mesylate [Pradaxa] 150 mg PO BID 08/18/17 [History] Finasteride [Proscar] 5 mg PO DAILY 08/18/17 [History] Furosemide [Lasix] 40 mg PO BID 08/18/17 [History] Insulin ASPART [Novolog] 10 unit SQ TID 08/18/17 [History] Insulin Glargine,Hum.rec.anlog [Lantus Solostar] 48 unit SQ QAM 08/18/17 [ History] Isosorbide MONOnitrate (24 HR) [Imdur] 60 mg PO DAILY 08/18/17 [History] Lisinopril [Zestril] 40 mg PO DAILY 08/18/17 [History] Methylphenidate HCl [Concerta] 18 mg PO DAILY 08/18/17 [History] Omeprazole [PriLOSEC] 40 mg PO BID 08/18/17 [History] Potassium Chloride [Klor-Con 10] 10 meq PO DAILY 08/18/17 [History] Spironolactone [Aldactone] 25 mg PO DAILY 08/18/17 [History] metFORMIN [Glucophage] 500 mg PO BIDWM 08/18/17 [History] Amiodarone [Cordarone] 200 mg PO DAILY tablet 08/23/17 [Rx] Amoxicillin/Clavulanate [Augmentin] 875 mg PO BIDWM 5 Days #10 tablet 08/23/17 [ Rx] Gabapentin [Neurontin] 600 mg PO BID 7 Days #14 tablet 08/23/17 [Rx] HYDROcodone/Acet 5/325 mg [[place] 5-325 mg] 2 tab PO TID 5 Days #30 tablet [Rx] Lactobacillus [Culturelle] 2 each PO DAILY cap.sprink 08/23/17 [Rx] Lidocaine Patch [Lidoderm 5% patch] 1 each TP DAILY adh..patch 08/23/17 [Rx] Metoprolol XL (24 HR) Succ [Toprol Xl] 200 mg PO DAILY tab.er.24h 08/23/17 [Rx] Morphine Sulfate [Arymo ER] 15 mg PO BID 5 Days #10 tab.po.er 08/23/17 [Rx] Promethazine [Phenergan] 25 mg PO DAILY #30 tablet 08/23/17 [Rx] Silvasorb 1 appl TP DAILY tube 08/23/17 [Rx] Allergies/Adverse Reactions: 3 Allergy/AdvReac Type Severity Reaction Status Date / Time red dye AdvReac Flushing Verified 08/18/17 15:39 CT/MRI Dye Allergy Anaphylaxis Uncoded 08/18/17 15:39 - Respiratory Orders Smoking Cessation: Smoking cessation has been advised. For more information, call the [place] Tobacco Quit Line at 2-536-GNGC-NOW. 2l/NC at HS - Advance Directives Living Will: No Power of Correspondence Clerk: No Code Status: Full Code - Mobility Orders Ambulate - Rehabiliation Orders Rehab Potential: Good - Diet Orders No Concentrated Sweets, Cardiac CERTIFICATION: I certify that the transfer of the above named patient to an Extended Care Facility is necessary for the continuing treatment of the diagnosis listed. The above information is true and accurate reflection of patient's current condition. Confidential - Redisclosure prohibited without a patient's written consent.
[2017-08-23 11:36] VITALS: BP 98/58
[2017-08-23] MEDS: Silvasorb 44.4 ML TUBE TP SCH (11:48)
[2017-08-23] MEDS: METHYLPHENIDATE HCL 18 MG PO SCH (11:49)
== END 2017-08-23 13:00 | DRG 292 ==
LOC: 3BNU 11:26 → EMEROO 11:26 → 3BNU 15:49
PROVIDERS: ADMIT Family Medicine; ATTEND Family Medicine

== ENCOUNTER 2020-04-29 12:40 | Inpatient (IN) ==
[2020-04-29] MEDS ORDERED: Azithromycin 250 MG TABLET PO ONE (14:00)
[2020-04-29] MEDS ORDERED: Furosemide 40 MG/4 ML VIAL IVP ONE (14:00)
[2020-04-29] MEDS ORDERED: cefTRIAXone 1,000 MG in Water for inj. (sterile) 10 ML IVP ONE (14:00)
[2020-04-29] MEDS ORDERED: methylPREDNISolone 125 MG/2 ML VIAL IVP ONE (14:00)
[2020-04-29 14:38] LABS: Basophils % 0.2 %; Eosinophils # 0.2 K/mcL (0.0-0.6); Eosinophils % 1.8 %; Immature Granulocytes % 0.4 % (0-4); Lymphocytes # 1.5 K/mcL (0.6-4.6); Mean Corpuscular HGB Conc 30.6 g/dL (31.6-35.5); Mean Corpuscular Hemoglobin 30.2 pg (28.0-33.3); Mean Corpuscular Volume 98.9 fL (83.0-100.0); Mean Platelet Volume 11.8 fL (9.4-12.4); Monocytes # 0.9 K/mcL (0.0-1.3); Monocytes % 8.8 %; Neutrophils # 7.4 K/mcL (1.6-8.9); Platelet Count 169 K/mcL (140-400); Red Blood Count 3.64 M/mcL (4.19-5.50); Red Cell Distribution Width 17.7 % (11.5-14.5); Segmented Neutrophils % 73.8 %
[2020-04-29 14:49] LABS: INR 1.4; Prothrombin Time 15.8 Seconds (9.4-12.1)
[2020-04-29 14:52] LABS: Activated Partial Thrombo Time 34.5 Seconds (26.0-36.0)
[2020-04-29 14:59] LABS: BUN/Creatinine Ratio 17 (6-26); Blood Urea Nitrogen 28 mg/dL (8-23); Calcium 8.9 mg/dL (8.6-10.3); Carbon Dioxide 29 mEq/L (23-29); Chloride 106 mEq/L (98-107); Glucose 124 mg/dL (70-105); Osmolality,Calculated 299 (280-300); Potassium 4.1 mEq/L (3.5-5.1); Sodium 141 mEq/L (136-145); Troponin I < 0.03 ng/mL (< 0.04); eGFR For African Americans 48 (> 60); eGFR For Non-African Americans 40 (> 60)
[2020-04-29] MEDS: Ipratropium/Albuterol Neb 3 ML IH ONE ×2 (15:01→15:06)
[2020-04-29] MEDS ORDERED: Naloxone 0.4 MG/ML INJ IVP PRN (17:53)
[2020-04-29] MEDS ORDERED: *HR* Dextrose 50 % in Water (Vial) 50 ML VIAL IVP PRN (18:02)
[2020-04-29] MEDS ORDERED: D5% in Water 1,000 ML IVC PRN (18:02)
[2020-04-29] MEDS ORDERED: Dextrose Gel 15 GM/37.5 ML TUBE PO PRN ×2 (18:02)
[2020-04-29 19:20] LABS: Bilirubin,Urine Negative (Negative); Blood,Urine Negative (Negative); Clarity,Urine Clear (Clear); Color,Urine Light-Yellow (Yellow); Glucose,Urine (UA) Normal (Normal); Ketones,Urine Negative (Negative); Leukocyte Esterase,Urine Small (Negative); Nitrite,Urine Negative (Negative); Protein,Urine Negative (Neg-Trace); RBC,Urine 0-3 per hpf (0-3); Specific Gravity,Urine 1.011 (1.010-1.025); Squamous Epithelial Cell,Urine Few per hpf (None-Few); Urobilinogen,Urine Normal (Normal); WBC,Urine 15-30 per hpf (0-3)
[2020-04-29 20:09] LABS: Adenovirus Not Detected (Not Detect); Bordetella Pertussis Not Detected (Not Detect); Chlamydophila pneumoniae Not Detected (Not Detect); Coronavirus 229E Not Detected (Not Detect); Coronavirus HKU1 Not Detected (Not Detect); Coronavirus NL63 Not Detected (Not Detect); Coronavirus OC43 Not Detected (Not Detect); Human Metapneumovirus Not Detected (Not Detect); Human Rhinovirus/Enterovirus Not Detected (Not Detect); Influenza A Subtype 2009 H1 Not Detected (Not Detect); Influenza B Not Detected (Not Detect); Mycoplasma pneumoniae Not Detected (Not Detect); Parainfluenza Virus 1 Not Detected (Not Detect); Parainfluenza Virus 2 Not Detected (Not Detect); Parainfluenza Virus 3 Not Detected (Not Detect); Parainfluenza Virus 4 Not Detected (Not Detect); Respiratory Syncytial Virus Not Detected (Not Detect); SARS-CoV-2 Not Detected (Not Detect)
[2020-04-29] MEDS: Insulin LISPRO 300 UNITS/3 ML VIAL SUBQ SCH (22:02)
[2020-04-29] MEDS: Furosemide 40 MG/4 ML VIAL IVP SCH (22:04)
[2020-04-29] MEDS ORDERED: Fluticasone Propionate Nasal 50 MCG/SPRAY BOTTLE NS PRN (23:59)
[2020-04-29] MEDS ORDERED: polyethylene glycoL 3350 17 GM POWD.PACK PO PRN (23:59)
[2020-04-29] MEDS ORDERED: Nitroglycerin 0.4 MG TAB.SUBL SL PRN (23:59)
[2020-04-29] MEDS ORDERED: *HR* HYDROcodone/Acet 5/325 mg TABLET PO PRN (23:59)
[2020-04-30] MEDS ORDERED: Morphine Sulfate Immed Rel 15 MG TABLET PO PRN
[2020-04-30] MEDS: *HR* HYDROcodone/Acet 5/325 mg TABLET PO PRN ×4 (00:58→23:50)
[2020-04-30] MEDS: Morphine Sulfate ER (12 HR) 15 MG TABLET.ER PO SCH ×3 (00:58→16:59)
[2020-04-30 03:17] LABS: Basophils % 0.1 %; Hemoglobin 11.1 g/dL (12.9-16.9); Immature Granulocytes % 0.3 % (0-4); Lymphocytes # 0.8 K/mcL (0.6-4.6); Mean Corpuscular HGB Conc 30.8 g/dL (31.6-35.5); Mean Corpuscular Volume 97.3 fL (83.0-100.0); Mean Platelet Volume 11.7 fL (9.4-12.4); Monocytes # 0.2 K/mcL (0.0-1.3); Monocytes % 2.2 %; Neutrophils # 7.7 K/mcL (1.6-8.9); Platelet Count 172 K/mcL (140-400); Red Cell Distribution Width 17.3 % (11.5-14.5); Segmented Neutrophils % 88.4 %; White Blood Count 8.7 K/mcL (4.3-11.1)
[2020-04-30 03:29] LABS: Calcium 8.8 mg/dL (8.6-10.3)
[2020-04-30] MEDS: Gabapentin 300 MG CAPSULE PO SCH ×2 (06:03→23:29)
[2020-04-30] MEDS: Doxycycline 100 MG in 0.9 % Sodium Chloride Mini Bag 100 ML IVPB SCH ×2 (06:29→17:00)
[2020-04-30] MEDS: Furosemide 40 MG/4 ML VIAL IVP SCH ×2 (07:57→23:30)
[2020-04-30] MEDS: Aspirin Enteric Coated 81 MG Tablet PO SCH (08:00)
[2020-04-30] MEDS: *HR* Amiodarone 200 MG TABLET PO SCH (08:01)
[2020-04-30] MEDS: Lactobacillus 1 EACH CAP.SPRINK PO SCH (08:01)
[2020-04-30] MEDS: Cholecalciferol (D-3) 1,000 UNIT (25MCG) TABLET PO SCH (08:01)
[2020-04-30] MEDS: Isosorbide MONOnitrate (24 HR) 60 MG TAB.ER.24H PO SCH (08:01)
[2020-04-30] MEDS: allopurinoL 300 MG TABLET PO SCH (08:01)
[2020-04-30] MEDS: Finasteride 5 MG TABLET PO SCH (08:01)
[2020-04-30] MEDS: Cyanocobalamin (B-12) 1,000 MCG TABLET PO SCH (08:01)
[2020-04-30] MEDS: Metoprolol XL (24 HR) Succ 50 MG TAB.ER.24H PO SCH ×2 (08:01→23:29)
[2020-04-30] MEDS: Spironolactone 25 MG TABLET PO SCH (08:02)
[2020-04-30] MEDS: Apixaban 5 MG TABLET PO SCH ×2 (08:02→23:29)
[2020-04-30] MEDS: Insulin LISPRO 300 UNITS/3 ML VIAL SUBQ SCH ×4 (08:06→23:36)
[2020-04-30] MEDS ORDERED: NON-FORMULARY MEDICATION 1 EACH EACH (Gabapentin [Neurontin] 600 MG) PO SCH (09:00)
[2020-04-30] MEDS: Ondansetron ODT 4 MG TAB.RAPDIS PO PRN (16:58)
[2020-04-30] MEDS ORDERED: Perflutren Lipid Microsphere 1.3 ML in 0.9 % Sodium Chloride 8.7 ML IVP PRN (20:18)
[2020-04-30] MEDS: lisinopriL 10 MG TABLET PO SCH (23:31)
[2020-05-01] MEDS: Morphine Sulfate ER (12 HR) 15 MG TABLET.ER PO SCH ×3 (04:33→16:19)
[2020-05-01] MEDS: Doxycycline 100 MG in 0.9 % Sodium Chloride Mini Bag 100 ML IVPB SCH ×2 (06:27→16:19)
[2020-05-01 06:38] LABS: Basophils % 0.2 %; Eosinophils # 0.1 K/mcL (0.0-0.6); Eosinophils % 0.3 %; Hematocrit 38.3 % (37.5-50.1); Hemoglobin 11.8 g/dL (12.9-16.9); Immature Granulocytes % 0.3 % (0-4); Lymphocytes # 1.6 K/mcL (0.6-4.6); Mean Corpuscular HGB Conc 30.8 g/dL (31.6-35.5); Mean Corpuscular Hemoglobin 29.6 pg (28.0-33.3); Mean Platelet Volume 11.2 fL (9.4-12.4); Monocytes % 6.3 %; Neutrophils # 12.9 K/mcL (1.6-8.9); Platelet Count 196 K/mcL (140-400); Red Blood Count 3.99 M/mcL (4.19-5.50); Red Cell Distribution Width 17.5 % (11.5-14.5); Segmented Neutrophils % 82.9 %
[2020-05-01 06:39] LABS: White Blood Count 15.6 K/mcL (4.3-11.1)
[2020-05-01 06:59] LABS: Albumin 3.7 g/dL (3.5-5.7); Albumin/Globulin Ratio 1.2 (1.1-2.2); Bilirubin,Total 0.8 mg/dL (0.3-1.0); Calcium 9.2 mg/dL (8.6-10.3); Potassium 3.7 mEq/L (3.5-5.1); Total Protein 6.7 g/dL (6.4-8.9)
[2020-05-01] MEDS: Insulin LISPRO 300 UNITS/3 ML VIAL SUBQ SCH ×4 (07:49→23:33)
[2020-05-01] MEDS: Apixaban 5 MG TABLET PO SCH (08:07)
[2020-05-01] MEDS: allopurinoL 300 MG TABLET PO SCH (08:08)
[2020-05-01] MEDS: Isosorbide MONOnitrate (24 HR) 60 MG TAB.ER.24H PO SCH (08:08)
[2020-05-01] MEDS: Lactobacillus 1 EACH CAP.SPRINK PO SCH (08:08)
[2020-05-01] MEDS: Spironolactone 25 MG TABLET PO SCH (08:08)
[2020-05-01] MEDS: Metoprolol XL (24 HR) Succ 50 MG TAB.ER.24H PO SCH (08:08)
[2020-05-01] MEDS: *HR* Amiodarone 200 MG TABLET PO SCH (08:08)
[2020-05-01] MEDS: Aspirin Enteric Coated 81 MG Tablet PO SCH (08:08)
[2020-05-01] MEDS: Cholecalciferol (D-3) 1,000 UNIT (25MCG) TABLET PO SCH (08:09)
[2020-05-01] MEDS: Cyanocobalamin (B-12) 1,000 MCG TABLET PO SCH (08:09)
[2020-05-01] MEDS: Finasteride 5 MG TABLET PO SCH (08:09)
[2020-05-01] MEDS: Furosemide 40 MG/4 ML VIAL IVP SCH (08:09)
[2020-05-02] MEDS: Apixaban 5 MG TABLET PO SCH ×3 (05:58→21:57)
[2020-05-02] MEDS: Metoprolol XL (24 HR) Succ 50 MG TAB.ER.24H PO SCH ×3 (05:58→21:57)
[2020-05-02] MEDS: lisinopriL 10 MG TABLET PO SCH ×2 (05:58→21:57)
[2020-05-02] MEDS: Gabapentin 300 MG CAPSULE PO SCH ×2 (05:58→21:57)
[2020-05-02] MEDS: Morphine Sulfate ER (12 HR) 15 MG TABLET.ER PO SCH ×3 (05:59→17:10)
[2020-05-02] MEDS: *HR* HYDROcodone/Acet 5/325 mg TABLET PO PRN ×2 (06:00→17:19)
[2020-05-02] MEDS: Doxycycline 100 MG in 0.9 % Sodium Chloride Mini Bag 100 ML IVPB SCH ×2 (06:00→17:10)
[2020-05-02] MEDS: Aspirin Enteric Coated 81 MG Tablet PO SCH (07:31)
[2020-05-02] MEDS: Cyanocobalamin (B-12) 1,000 MCG TABLET PO SCH (07:31)
[2020-05-02] MEDS: Spironolactone 25 MG TABLET PO SCH (07:31)
[2020-05-02] MEDS: Isosorbide MONOnitrate (24 HR) 60 MG TAB.ER.24H PO SCH (07:31)
[2020-05-02] MEDS: *HR* Amiodarone 200 MG TABLET PO SCH (07:32)
[2020-05-02] MEDS: Lactobacillus 1 EACH CAP.SPRINK PO SCH (07:32)
[2020-05-02] MEDS: Cholecalciferol (D-3) 1,000 UNIT (25MCG) TABLET PO SCH (07:32)
[2020-05-02] MEDS: allopurinoL 300 MG TABLET PO SCH (07:32)
[2020-05-02] MEDS: Finasteride 5 MG TABLET PO SCH (07:32)
[2020-05-02] MEDS: Insulin LISPRO 300 UNITS/3 ML VIAL SUBQ SCH ×4 (08:16→21:58)
[2020-05-02 09:01] LABS: Calcium 9.1 mg/dL (8.6-10.3); Potassium 3.7 mEq/L (3.5-5.1)
[2020-05-02] MEDS: Furosemide 40 MG/4 ML VIAL IVP SCH ×2 (13:53→17:11)
[2020-05-02] MEDS: Ondansetron ODT 4 MG TAB.RAPDIS PO PRN (20:52)
[2020-05-03] MEDS: Morphine Sulfate ER (12 HR) 15 MG TABLET.ER PO SCH ×4 (01:15→23:38)
[2020-05-03] MEDS: Doxycycline 100 MG in 0.9 % Sodium Chloride Mini Bag 100 ML IVPB SCH ×2 (06:15→17:07)
[2020-05-03] MEDS: Furosemide 40 MG/4 ML VIAL IVP SCH ×2 (08:15→17:02)
[2020-05-03] MEDS: Insulin LISPRO 300 UNITS/3 ML VIAL SUBQ SCH ×5 (08:15→20:03)
[2020-05-03] MEDS: allopurinoL 300 MG TABLET PO SCH (08:16)
[2020-05-03] MEDS: Aspirin Enteric Coated 81 MG Tablet PO SCH (08:16)
[2020-05-03] MEDS: Cholecalciferol (D-3) 1,000 UNIT (25MCG) TABLET PO SCH (08:16)
[2020-05-03] MEDS: Cyanocobalamin (B-12) 1,000 MCG TABLET PO SCH (08:16)
[2020-05-03] MEDS: Finasteride 5 MG TABLET PO SCH (08:16)
[2020-05-03] MEDS: Spironolactone 25 MG TABLET PO SCH (08:16)
[2020-05-03] MEDS: *HR* Amiodarone 200 MG TABLET PO SCH (08:17)
[2020-05-03] MEDS: Metoprolol XL (24 HR) Succ 50 MG TAB.ER.24H PO SCH ×2 (08:17→20:04)
[2020-05-03] MEDS: Isosorbide MONOnitrate (24 HR) 60 MG TAB.ER.24H PO SCH (08:17)
[2020-05-03] MEDS: Apixaban 5 MG TABLET PO SCH ×2 (08:17→20:03)
[2020-05-03] MEDS: Lactobacillus 1 EACH CAP.SPRINK PO SCH (08:17)
[2020-05-03 14:24] LABS: Basophils % 0.3 %; Eosinophils # 0.2 K/mcL (0.0-0.6); Eosinophils % 2.6 %; Hematocrit 34.1 % (37.5-50.1); Hemoglobin 10.6 g/dL (12.9-16.9); Immature Granulocytes % 0.4 % (0-4); Lymphocytes # 1.2 K/mcL (0.6-4.6); Lymphocytes % 15.6 %; Mean Corpuscular HGB Conc 31.1 g/dL (31.6-35.5); Mean Corpuscular Hemoglobin 30.1 pg (28.0-33.3); Mean Corpuscular Volume 96.9 fL (83.0-100.0); Mean Platelet Volume 10.8 fL (9.4-12.4); Monocytes # 0.6 K/mcL (0.0-1.3); Monocytes % 7.2 %; Neutrophils # 5.7 K/mcL (1.6-8.9); Platelet Count 179 K/mcL (140-400); Red Blood Count 3.52 M/mcL (4.19-5.50); Red Cell Distribution Width 17.1 % (11.5-14.5); Segmented Neutrophils % 73.9 %
[2020-05-03 14:25] LABS: White Blood Count 7.7 K/mcL (4.3-11.1)
[2020-05-03 14:40] LABS: Calcium 8.9 mg/dL (8.6-10.3); Potassium 4.1 mEq/L (3.5-5.1)
[2020-05-03] MEDS: Ondansetron ODT 4 MG TAB.RAPDIS PO PRN (17:06)
[2020-05-03] MEDS: Gabapentin 300 MG CAPSULE PO SCH (20:04)
[2020-05-03] MEDS: lisinopriL 10 MG TABLET PO SCH (20:04)
[2020-05-03] MEDS: *HR* HYDROcodone/Acet 5/325 mg TABLET PO PRN (20:12)
[2020-05-04] MEDS: Doxycycline 100 MG in 0.9 % Sodium Chloride Mini Bag 100 ML IVPB SCH ×2 (05:31→17:22)
[2020-05-04 06:45] LABS: Basophils % 0.4 %; Eosinophils # 0.2 K/mcL (0.0-0.6); Eosinophils % 3.6 %; Hematocrit 34.8 % (37.5-50.1); Hemoglobin 10.7 g/dL (12.9-16.9); Immature Granulocytes % 0.3 % (0-4); Lymphocytes # 1.6 K/mcL (0.6-4.6); Lymphocytes % 24.1 %; Mean Corpuscular HGB Conc 30.7 g/dL (31.6-35.5); Mean Corpuscular Volume 97.5 fL (83.0-100.0); Mean Platelet Volume 11.2 fL (9.4-12.4); Monocytes # 0.5 K/mcL (0.0-1.3); Monocytes % 6.8 %; Neutrophils # 4.4 K/mcL (1.6-8.9); Platelet Count 176 K/mcL (140-400); Red Blood Count 3.57 M/mcL (4.19-5.50); Red Cell Distribution Width 16.8 % (11.5-14.5); Segmented Neutrophils % 64.8 %; White Blood Count 6.7 K/mcL (4.3-11.1)
[2020-05-04 07:06] LABS: Calcium 9.1 mg/dL (8.6-10.3); Potassium 3.6 mEq/L (3.5-5.1)
[2020-05-04] MEDS: Cholecalciferol (D-3) 1,000 UNIT (25MCG) TABLET PO SCH (08:42)
[2020-05-04] MEDS: Apixaban 5 MG TABLET PO SCH ×2 (08:42→20:20)
[2020-05-04] MEDS: Morphine Sulfate ER (12 HR) 15 MG TABLET.ER PO SCH ×3 (08:42→23:52)
[2020-05-04] MEDS: Aspirin Enteric Coated 81 MG Tablet PO SCH (08:42)
[2020-05-04] MEDS: Metoprolol XL (24 HR) Succ 50 MG TAB.ER.24H PO SCH ×2 (08:43→20:21)
[2020-05-04] MEDS: Furosemide 40 MG/4 ML VIAL IVP SCH ×2 (08:43→17:19)
[2020-05-04] MEDS: Spironolactone 25 MG TABLET PO SCH (08:43)
[2020-05-04] MEDS: Isosorbide MONOnitrate (24 HR) 60 MG TAB.ER.24H PO SCH (08:43)
[2020-05-04] MEDS: allopurinoL 300 MG TABLET PO SCH (08:43)
[2020-05-04] MEDS: Lactobacillus 1 EACH CAP.SPRINK PO SCH (08:43)
[2020-05-04] MEDS: Cyanocobalamin (B-12) 1,000 MCG TABLET PO SCH (08:43)
[2020-05-04] MEDS: Finasteride 5 MG TABLET PO SCH (08:43)
[2020-05-04] MEDS: *HR* Amiodarone 200 MG TABLET PO SCH (08:43)
[2020-05-04] MEDS: Insulin LISPRO 300 UNITS/3 ML VIAL SUBQ SCH ×7 (08:45→20:18)
[2020-05-04] MEDS: Insulin DETEMIR 100 UNIT/ML X5UNITS SUBQ SCH (08:47)
[2020-05-04] MEDS: Ondansetron ODT 4 MG TAB.RAPDIS PO PRN ×2 (09:49→17:21)
[2020-05-04] MEDS: *HR* HYDROcodone/Acet 5/325 mg TABLET PO PRN ×2 (17:31→23:53)
[2020-05-04] MEDS: Gabapentin 300 MG CAPSULE PO SCH (20:20)
[2020-05-04] MEDS: lisinopriL 10 MG TABLET PO SCH (20:21)
[2020-05-05] MEDS: Doxycycline 100 MG in 0.9 % Sodium Chloride Mini Bag 100 ML IVPB SCH ×2 (05:34→17:28)
[2020-05-05 05:42] LABS: Basophils % 0.4 %; Eosinophils # 0.2 K/mcL (0.0-0.6); Eosinophils % 3.4 %; Hematocrit 35.8 % (37.5-50.1); Hemoglobin 10.8 g/dL (12.9-16.9); Immature Granulocytes % 0.2 % (0-4); Lymphocytes # 1.1 K/mcL (0.6-4.6); Lymphocytes % 20.5 %; Mean Corpuscular HGB Conc 30.2 g/dL (31.6-35.5); Mean Corpuscular Hemoglobin 29.6 pg (28.0-33.3); Mean Corpuscular Volume 98.1 fL (83.0-100.0); Mean Platelet Volume 11.2 fL (9.4-12.4); Monocytes # 0.5 K/mcL (0.0-1.3); Monocytes % 9.6 %; Neutrophils # 3.5 K/mcL (1.6-8.9); Platelet Count 173 K/mcL (140-400); Red Blood Count 3.65 M/mcL (4.19-5.50); Segmented Neutrophils % 65.9 %; White Blood Count 5.3 K/mcL (4.3-11.1)
[2020-05-05 06:02] LABS: Potassium 3.7 mEq/L (3.5-5.1)
[2020-05-05] MEDS: Isosorbide MONOnitrate (24 HR) 60 MG TAB.ER.24H PO SCH (07:40)
[2020-05-05] MEDS: Metoprolol XL (24 HR) Succ 50 MG TAB.ER.24H PO SCH ×2 (07:40→20:18)
[2020-05-05] MEDS: Lactobacillus 1 EACH CAP.SPRINK PO SCH (07:40)
[2020-05-05] MEDS: *HR* Amiodarone 200 MG TABLET PO SCH (07:40)
[2020-05-05] MEDS: Morphine Sulfate ER (12 HR) 15 MG TABLET.ER PO SCH ×2 (07:41→17:28)
[2020-05-05] MEDS: Apixaban 5 MG TABLET PO SCH ×2 (07:41→20:18)
[2020-05-05] MEDS: Finasteride 5 MG TABLET PO SCH (07:41)
[2020-05-05] MEDS: Aspirin Enteric Coated 81 MG Tablet PO SCH (07:41)
[2020-05-05] MEDS: Spironolactone 25 MG TABLET PO SCH (07:41)
[2020-05-05] MEDS: Insulin LISPRO 300 UNITS/3 ML VIAL SUBQ SCH ×7 (07:42→21:56)
[2020-05-05] MEDS: Cyanocobalamin (B-12) 1,000 MCG TABLET PO SCH (07:42)
[2020-05-05] MEDS: Cholecalciferol (D-3) 1,000 UNIT (25MCG) TABLET PO SCH (07:42)
[2020-05-05] MEDS: allopurinoL 300 MG TABLET PO SCH (07:42)
[2020-05-05] MEDS: Furosemide 40 MG/4 ML VIAL IVP SCH (07:43)
[2020-05-05] MEDS: Insulin DETEMIR 100 UNIT/ML X5UNITS SUBQ SCH (07:46)
[2020-05-05] MEDS: *HR* HYDROcodone/Acet 5/325 mg TABLET PO PRN ×2 (07:48→17:28)
[2020-05-05] MEDS: Ondansetron ODT 4 MG TAB.RAPDIS PO PRN (13:01)
[2020-05-05] MEDS: lisinopriL 10 MG TABLET PO SCH (20:17)
[2020-05-05] MEDS: Gabapentin 300 MG CAPSULE PO SCH (20:17)
[2020-05-06] MEDS: Morphine Sulfate ER (12 HR) 15 MG TABLET.ER PO SCH ×4 (00:36→23:55)
[2020-05-06] MEDS ORDERED: Benzonatate 100 MG CAPSULE PO PRN (03:26)
[2020-05-06] MEDS: Doxycycline 100 MG in 0.9 % Sodium Chloride Mini Bag 100 ML IVPB SCH ×2 (04:53→17:53)
[2020-05-06 06:21] LABS: Basophils % 0.2 %; Eosinophils # 0.1 K/mcL (0.0-0.6); Hematocrit 34.2 % (37.5-50.1); Hemoglobin 10.4 g/dL (12.9-16.9); Immature Granulocytes % 0.4 % (0-4); Lymphocytes # 1.4 K/mcL (0.6-4.6); Lymphocytes % 27.2 %; Mean Corpuscular HGB Conc 30.4 g/dL (31.6-35.5); Mean Corpuscular Hemoglobin 28.9 pg (28.0-33.3); Mean Platelet Volume 10.9 fL (9.4-12.4); Monocytes # 0.6 K/mcL (0.0-1.3); Monocytes % 12.1 %; Platelet Count 160 K/mcL (140-400); Red Cell Distribution Width 17.1 % (11.5-14.5); Segmented Neutrophils % 58.1 %; White Blood Count 5.1 K/mcL (4.3-11.1)
[2020-05-06 06:46] LABS: Calcium 8.8 mg/dL (8.6-10.3); Potassium 3.7 mEq/L (3.5-5.1)
[2020-05-06] MEDS: *HR* HYDROcodone/Acet 5/325 mg TABLET PO PRN ×2 (07:39→16:36)
[2020-05-06] MEDS: Finasteride 5 MG TABLET PO SCH (07:41)
[2020-05-06] MEDS: Apixaban 5 MG TABLET PO SCH ×2 (07:41→21:24)
[2020-05-06] MEDS: Spironolactone 25 MG TABLET PO SCH (07:41)
[2020-05-06] MEDS: allopurinoL 300 MG TABLET PO SCH (07:41)
[2020-05-06] MEDS: Isosorbide MONOnitrate (24 HR) 60 MG TAB.ER.24H PO SCH (07:41)
[2020-05-06] MEDS: Cyanocobalamin (B-12) 1,000 MCG TABLET PO SCH (07:41)
[2020-05-06] MEDS: Lactobacillus 1 EACH CAP.SPRINK PO SCH (07:41)
[2020-05-06] MEDS: *HR* Amiodarone 200 MG TABLET PO SCH (07:41)
[2020-05-06] MEDS: Aspirin Enteric Coated 81 MG Tablet PO SCH (07:42)
[2020-05-06] MEDS: Insulin LISPRO 300 UNITS/3 ML VIAL SUBQ SCH ×7 (07:42→21:25)
[2020-05-06] MEDS: Furosemide 40 MG/4 ML VIAL IVP SCH (07:42)
[2020-05-06] MEDS: Metoprolol XL (24 HR) Succ 50 MG TAB.ER.24H PO SCH ×2 (07:42→21:23)
[2020-05-06] MEDS: Cholecalciferol (D-3) 1,000 UNIT (25MCG) TABLET PO SCH (07:42)
[2020-05-06] MEDS: Insulin DETEMIR 100 UNIT/ML X5UNITS SUBQ SCH (07:48)
[2020-05-06 10:42] LABS: Adenovirus Not Detected (Not Detect); Coronavirus 229E Not Detected (Not Detect); Coronavirus HKU1 Not Detected (Not Detect); Coronavirus NL63 Not Detected (Not Detect); Coronavirus OC43 Not Detected (Not Detect)
[2020-05-06 10:43] LABS: Bordetella Pertussis Not Detected (Not Detect); Chlamydophila pneumoniae Not Detected (Not Detect); Human Metapneumovirus Not Detected (Not Detect); Human Rhinovirus/Enterovirus Not Detected (Not Detect); Influenza A Subtype 2009 H1 Not Detected (Not Detect); Influenza B Not Detected (Not Detect); Mycoplasma pneumoniae Not Detected (Not Detect); Parainfluenza Virus 1 Not Detected (Not Detect); Parainfluenza Virus 2 Not Detected (Not Detect); Parainfluenza Virus 3 Not Detected (Not Detect); Parainfluenza Virus 4 Not Detected (Not Detect); Respiratory Syncytial Virus Not Detected (Not Detect); SARS-CoV-2 DETECTED (Not Detect)
[2020-05-06] MEDS: Dexamethasone 4 MG/ML VIAL IVP SCH (12:55)
[2020-05-06] MEDS: Ondansetron ODT 4 MG TAB.RAPDIS PO PRN ×2 (16:23→23:54)
[2020-05-06] MEDS: Gabapentin 300 MG CAPSULE PO SCH (21:23)
[2020-05-06] MEDS: lisinopriL 10 MG TABLET PO SCH (21:24)
[2020-05-07] MEDS: Doxycycline 100 MG in 0.9 % Sodium Chloride Mini Bag 100 ML IVPB SCH (05:15)
[2020-05-07 06:34] LABS: Basophils % 0.2 %; Hematocrit 34.7 % (37.5-50.1); Hemoglobin 10.8 g/dL (12.9-16.9); Immature Granulocytes % 0.2 % (0-4); Lymphocytes # 0.9 K/mcL (0.6-4.6); Lymphocytes % 18.9 %; Mean Corpuscular HGB Conc 31.1 g/dL (31.6-35.5); Mean Corpuscular Hemoglobin 29.9 pg (28.0-33.3); Mean Corpuscular Volume 96.1 fL (83.0-100.0); Mean Platelet Volume 10.8 fL (9.4-12.4); Monocytes # 0.3 K/mcL (0.0-1.3); Neutrophils # 3.6 K/mcL (1.6-8.9); Platelet Count 155 K/mcL (140-400); Red Blood Count 3.61 M/mcL (4.19-5.50); Red Cell Distribution Width 16.7 % (11.5-14.5); Segmented Neutrophils % 73.7 %; White Blood Count 4.9 K/mcL (4.3-11.1)
[2020-05-07 06:45] LABS: Calcium 9.1 mg/dL (8.6-10.3); Potassium 4.3 mEq/L (3.5-5.1)
[2020-05-07] MEDS: Insulin DETEMIR 100 UNIT/ML X5UNITS SUBQ SCH (07:38)
[2020-05-07] MEDS: Insulin LISPRO 300 UNITS/3 ML VIAL SUBQ SCH ×7 (07:38→22:06)
[2020-05-07] MEDS: Aspirin Enteric Coated 81 MG Tablet PO SCH (07:41)
[2020-05-07] MEDS: *HR* HYDROcodone/Acet 5/325 mg TABLET PO PRN ×2 (07:41→16:33)
[2020-05-07] MEDS: Morphine Sulfate ER (12 HR) 15 MG TABLET.ER PO SCH ×2 (07:41→16:34)
[2020-05-07] MEDS: allopurinoL 300 MG TABLET PO SCH (07:41)
[2020-05-07] MEDS: Lactobacillus 1 EACH CAP.SPRINK PO SCH (07:41)
[2020-05-07] MEDS: Finasteride 5 MG TABLET PO SCH (07:42)
[2020-05-07] MEDS: Spironolactone 25 MG TABLET PO SCH (07:42)
[2020-05-07] MEDS: Cholecalciferol (D-3) 1,000 UNIT (25MCG) TABLET PO SCH (07:42)
[2020-05-07] MEDS: Apixaban 5 MG TABLET PO SCH ×2 (07:42→22:03)
[2020-05-07] MEDS: Isosorbide MONOnitrate (24 HR) 60 MG TAB.ER.24H PO SCH (07:42)
[2020-05-07] MEDS: Cyanocobalamin (B-12) 1,000 MCG TABLET PO SCH (07:42)
[2020-05-07] MEDS: *HR* Amiodarone 200 MG TABLET PO SCH (07:42)
[2020-05-07] MEDS: Metoprolol XL (24 HR) Succ 50 MG TAB.ER.24H PO SCH ×2 (07:42→22:04)
[2020-05-07] MEDS: Dexamethasone 4 MG/ML VIAL IVP SCH (07:43)
[2020-05-07] MEDS: Furosemide 40 MG/4 ML VIAL IVP SCH ×2 (07:43→16:34)
[2020-05-07] MEDS: Gabapentin 300 MG CAPSULE PO SCH (22:02)
[2020-05-07] MEDS: lisinopriL 10 MG TABLET PO SCH (22:05)
[2020-05-08] MEDS: Morphine Sulfate ER (12 HR) 15 MG TABLET.ER PO SCH ×3 (00:07→16:06)
[2020-05-08 06:55] VITALS: BP 155/79
[2020-05-08] MEDS: Insulin LISPRO 300 UNITS/3 ML VIAL SUBQ SCH ×4 (08:15→13:32)
[2020-05-08] MEDS: Isosorbide MONOnitrate (24 HR) 60 MG TAB.ER.24H PO SCH (08:17)
[2020-05-08] MEDS: Lactobacillus 1 EACH CAP.SPRINK PO SCH (08:17)
[2020-05-08] MEDS: Aspirin Enteric Coated 81 MG Tablet PO SCH (08:17)
[2020-05-08] MEDS: Cholecalciferol (D-3) 1,000 UNIT (25MCG) TABLET PO SCH (08:17)
[2020-05-08] MEDS: Cyanocobalamin (B-12) 1,000 MCG TABLET PO SCH (08:18)
[2020-05-08] MEDS: Finasteride 5 MG TABLET PO SCH (08:18)
[2020-05-08] MEDS: Metoprolol XL (24 HR) Succ 50 MG TAB.ER.24H PO SCH (08:18)
[2020-05-08] MEDS: *HR* Amiodarone 200 MG TABLET PO SCH (08:18)
[2020-05-08] MEDS: Spironolactone 25 MG TABLET PO SCH (08:19)
[2020-05-08] MEDS: Apixaban 5 MG TABLET PO SCH (08:19)
[2020-05-08] MEDS: Furosemide 40 MG/4 ML VIAL IVP SCH (08:20)
[2020-05-08] MEDS: Dexamethasone 4 MG/ML VIAL IVP SCH (08:20)
[2020-05-08] MEDS: allopurinoL 300 MG TABLET PO SCH (08:20)
[2020-05-08] MEDS: Insulin DETEMIR 100 UNIT/ML X5UNITS SUBQ SCH (10:51)
[2020-05-08] MEDS: *HR* HYDROcodone/Acet 5/325 mg TABLET PO PRN (16:14)
== END 2020-05-08 16:43 | disposition home health service (06) | DRG 291 ==
LOC: EMEROOARM 12:40 → 3BNU 12:40 → SUATTDRO 17:20 → 3BNU 18:15 → SUATTDRO 05-01 15:22 → 3BNU 05-02 11:59
PROVIDERS: ADMIT Family Medicine; ATTEND Internal Medicine